=== PATIENT | female | born 1930 | race Caucasian/White ===

== ENCOUNTER 2017-03-31 16:51 | Emergency (ER) | payer MEDICARE ==
[~2017-03-31] VITALS: Ht 162.6 cm; Wt 59.0 kg
[2017-03-31 16:54] VITALS: BP 186/84; PULSE 72; RESP 20; TEMP 97.7; O2SAT 99
[2017-03-31] MEDS ORDERED: MULT-65 PO (17:07)
--- NOTE | 2017-03-31 17:19 | PD ---
HPI Chief Complaint: Fall Time Seen by Provider: 17:10 Travel History International Travel<30 days: No Contact w/Intl Traveler<30days: No Traveled to known affect area: No History of Present Illness HPI This is an 86-year-old female who presents for evaluation after mechanical fall. 2:58 PM today the patient was walking in her house when she tripped on a exercise bike in the home and fell, hitting her right parietal scalp against a stereo. She sustained a 1 CM laceration. She has slight pain at the site of laceration with palpation. She denies loss of consciousness, generalized headache, blurred vision, nausea or vomiting, confusion or amnesia, neck or back pain, injury to the extremities or torso. Her only complaint is that she is frustrated that she had to come here. She is not on any sort of anticoagulation. Her last tetanus vaccination was 2 years ago. She has no other complaints. [facility] Social History Alcohol Use: No Tobacco Use: No Allergies-Medications (Allergen,Severity, Reaction): Coded Allergies: Penicillin (Verified Allergy, Severe, rash as a teen, 03/31/17) Reported Meds & Prescriptions Reported Meds & Active Scripts Active Reported Multi-Vitamin Daily (Multiple Vitamin) 1 Tab Tab 1 Tab PO DAILY Review of Systems Except as stated in HPI: all other systems reviewed are Neg Physical Exam Narrative GENERAL: Pleasant well-developed well-nourished female in no acute distress answering questions appropriately GCS 15 SKIN: Warm and dry. There is a 1 cm linear laceration to the right parietal scalp. There is gauze noted to the right forearm from a previous fall. HEAD: Skin as noted above with no underlying step-offs Normocephalic. EYES: Pupils equal and round. No scleral icterus. No injection or drainage. ENT: No nasal bleeding or discharge. Mucous membranes pink and moist. NECK: Trachea midline. No JVD. CARDIOVASCULAR: Regular rate and rhythm. No murmur appreciated. RESPIRATORY: No accessory muscle use. Clear to auscultation. Breath sounds equal bilaterally. GASTROINTESTINAL: Abdomen soft, non-tender, nondistended. Hepatic and splenic margins not palpable. MUSCULOSKELETAL: No obvious deformities. Full spontaneous range of motion of the upper and lower extremities. No tenderness to palpation along the neck or back. No range of motion limitation. NEUROLOGICAL: Awake and alert. No obvious cranial nerve deficits. Motor grossly within normal limits. Normal speech. PSYCHIATRIC: Appropriate mood and affect; insight and judgment normal. Data Data Last Documented VS Vital Signs Date Time Temp Pulse Resp B/P Pulse Ox O2 Delivery O2 Flow Rate FiO2 03/31/17 17:08 67 17 100 Room Air 03/31/17 16:54 97.7 186/84 Orders Lidocai-Epi 1%-1:100,000 Inj (Xylocaine- (03/31/17 17:30) Ct Brain W/O Iv Contrast(Rout) (03/31/17 ) MDM Medical Decision Making Medical Screen Exam Complete: Yes Emergency Medical Condition: Yes Medical Record Reviewed: Yes Interpretation(s) CONCLUSION: 1. Mild cerebral atrophy. 2. Mild periventricular and subcortical white matter small vessel ischemic changes bilaterally. 3. Scattered old tiny lacunar infarcts within the bilateral basal ganglia. 4. 8 mm calcified extra-axial mass along the lateral aspect of the left temporal lobe suggestive of probable calcified meningioma. 5. No acute infarct, acute hemorrhage, midline shift or extra-axial fluid collections. Differential Diagnosis Scalp laceration, cranial hemorrhage, skull fracture, abrasion Narrative Course This is an 86-year-old female presents after mechanical fall with a 1 right parietal scalp. She has no other complaints at this time and appears quite well. She is not on any sort of anticoagulation. Plan is for CT of the brain. The laceration will be repaired [place], she verbally consents. CT brain reveals no acute abnormalities. The patient is stable for discharge. Procedures Procedure Narrative LACERATION LOCATION: Right parietal scalp LENGTH: 1 cm NUMBER OF STITCHES/JES: 3 REPAIR: The area of the laceration was prepped with Betadine and sterilely draped. The laceration was infiltrated with 1% lidocaine with epinephrine. The wound was copiously irrigated and explored without evidence of foreign body , tendon injury or neurovascular injury. The wound was closed using jes. This was a single layer repair. A sterile dressing was applied. The patient was advised to keep the dressing clean and dry. Patient tolerated the procedure well. Diagnosis Primary Impression: Scalp laceration Qualified Code: S01.01XA - Scalp laceration, initial encounter Additional Instructions: Wash gently with soap and water and apply antibiotic cream daily. Return here or to primary care physician's office in 7-10 days for staple removal. Med/Other Pt SpecificInfo: Wound Care Disposition: 01 DISCHARGE HOME Condition: Stable Abhijeet Guerra Mar 31, 2017 17:19
[2017-03-31] MEDS ORDERED: LIDOCAINE 1%/EPINEPHrine 1:100,000 SOLN 20 ML VIAL INFIL ONE (17:30)
--- NOTE | 2017-03-31 19:05 | RADRPT ---
EXAM DATE/TIME: 03/31/2017 17:51 [facility] COMPARISON: No previous studies available for comparison. INDICATIONS : Cephalgia; tfauma. RADIATION DOSE: 39.33 CTDIvol (mGy) MEDICAL HISTORY : Carcinoma, breast. SURGICAL HISTORY : None. ENCOUNTER: Initial ACUITY: 1 day PAIN SCALE: 5/10 LOCATION: Cranial TECHNIQUE: Multiple contiguous axial images were obtained of the head. Using automated exposure control and adj ustment of the mA and/or kV according to patient size, radiation dose was kept as low as reasonably a chievable to obtain optimal diagnostic quality images. DICOM format image data is available electro nically for review and comparison. FINDINGS: Mild cerebral atrophy is noted. Mild periventricular and subcortical white matter small vessel ischemic changes are noted bilaterally. There are scattered old tiny lacunar infarcts within the bilateral basal ganglia. There is a calcified extra-axial mass along the lateral aspect of the left temporal lobe measuring 8mm consistent with probable calcified meningioma. There is no acute infarct, acute hemorrhage, mid line shift or extra-axial fluid collections. CONCLUSION: 1. Mild cerebral atrophy. 2. Mild periventricular and subcortical white matter small vessel ischemic changes bilaterally. 3. Scattered old tiny lacunar infarcts within the bilateral basal ganglia. 4. 8 mm calcified extra-axial mass along the lateral aspect of the left temporal lobe suggestive of p robable calcified meningioma. 5. No acute infarct, acute hemorrhage, midline shift or extra-axial fluid collections. Ismael Castañeda MD on March 31, 2017 at 18:15 Board Certified Radiologist. This report was verified electronically.
== END 2017-03-31 19:33 | disposition home or self-care (01) ==
LOC: NEPC 16:51
DX: S01.01XA Laceration without foreign body of scalp, initial encounter (principal); W18.01XA Striking against sports equipment with subsequent fall, initial encounter; Y93.01 Activity, walking, marching and hiking; Y92.009 Unspecified place in unspecified non-institutional (private) residence as the place of occurrence of the external cause
CPT/HCPCS: 12001; 70450

== ENCOUNTER 2017-07-03 16:13 | Inpatient (IN) | payer MEDICARE, BC ==
[~2017-07-03] VITALS: Ht 165.1 cm; Wt 59.3 kg
[~2017-07-03 16:13] MED LIST: MULT-65 PO
[2017-07-03 16:14] VITALS: BP 146/88; PULSE 94; RESP 18; TEMP 98.4; O2SAT 95
[2017-07-03] MEDS ORDERED: TIMO0.5S30 EACH EYE (16:51)
[2017-07-03] MEDS ORDERED: FISHCAP4 PO (16:51)
[2017-07-03] MEDS ORDERED: CALC500T35 (16:51)
--- NOTE | 2017-07-03 17:07 | PD ---
HPI Chief Complaint: General Weakness Time Seen by Provider: 16:45 Travel History International Travel<30 days: No Contact w/Intl Traveler<30days: No Traveled to known affect area: No History of Present Illness HPI 87-year-old female came to the emergency room with history of right leg weakness that started this morning when she woke up at 7 AM. Patient says that she has been able to walk but it's wobbly. She has been trying to exercise but once again because of the weakness has not been fully efficient in that process. 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 Patient has not fallen or hit her head. No previous history of stroke. No history of headache or chest pain. Vital signs were otherwise stable. [facility], [facility] Past Medical History Narrative Medical List of her past medical, surgical, social and family history is reviewed from the nursing note. Cancer: Yes (BREAST ) Diminished Hearing: No Influenza Vaccination: Yes Past Surgical History Hysterectomy: Yes Other Surgery: Yes (BREAST CA LUMPECTOMY) Social History Alcohol Use: No Tobacco Use: No Substance Use: No Allergies-Medications (Allergen,Severity, Reaction): Coded Allergies: penicillin G (Unverified Allergy, Severe, rash as a teen, 07/03/17) Comments List of her allergies reviewed from the nursing note. Reported Meds & Prescriptions Reported Meds & Active Scripts Active Reported Timolol Opth Drops 0.5 % Soln 1 Drop EACH EYE BID Fish Oil + D3 (Fish Oil-Cholecalciferol) 1,200-1,000 Mg-Unit Cap 1 Cap PO DAILY Calcium (Oyster Shell) 500 Mg Calcium (1250 Mg) Tab Multi-Vitamin Daily (Multiple Vitamin) 1 Tab Tab 1 Tab PO DAILY Narrative Medication List of her home medications reviewed from the nursing note. Review of Systems Except as stated in HPI: all other systems reviewed are Neg Neurologic: Positive: Weakness, Focal Abnormalities Physical Exam Narrative GENERAL: Awake, alert, no obvious distress SKIN: Focused skin assessment warm/dry. HEAD: Atraumatic. Normocephalic. EYES: Pupils equal and round. No scleral icterus. No injection or drainage. ENT: No nasal bleeding or discharge. Dry mucous membrane NECK: Trachea midline. No JVD. CARDIOVASCULAR: Regular rate and rhythm. No murmur appreciated. RESPIRATORY: No accessory muscle use. Clear to auscultation. Breath sounds equal bilaterally. GASTROINTESTINAL: Abdomen soft, non-tender, nondistended. Hepatic and splenic margins not palpable. MUSCULOSKELETAL: No obvious deformities. No clubbing. No cyanosis. No edema. NEUROLOGICAL: Awake and alert. No obvious cranial nerve deficits. NIH stroke score of 34 right lower extremity drift, mild facial droop, left lower and upper extremity ataxia PSYCHIATRIC: Appropriate mood and affect; insight and judgment normal. Data Data Last Documented VS Vital Signs Date Time Temp Pulse Resp B/P (MAP) Pulse Ox O2 Delivery O2 Flow Rate FiO2 07/03/17 17:59 97 Room Air 07/03/17 16:14 98.4 94 18 Orders Orders Electrocardiogram (07/03/17 17:14) Prothrombin Time / Inr (Pt) (07/03/17 17:14) Complete Blood Count With Diff (07/03/17 17:14) Basic Metabolic Panel (Bmp) (07/03/17 17:14) Troponin I (07/03/17 17:14) Urinalysis - C+S If Indicated (07/03/17 17:14) Ct Brain W/O Iv Contrast(Rout) (07/03/17 17:14) Chest, Single Ap (07/03/17 17:14) Ecg Monitoring (07/03/17 17:14) Iv Access Insert/Monitor (07/03/17 17:14) Oximetry (07/03/17 17:14) Sodium Chloride 0.9% Flush (Ns Flush) (07/03/17 17:15) Vital Signs (Adult) ADRIANA.Q4H (07/03/17 17:57) Neuro Checks . ORDERED (07/03/17 17:57) Sodium Chlor 0.9% 1000 Ml Inj (Ns 1000 M (07/03/17 18:00) Aspirin (Aspirin) (07/03/17 18:00) Admit Order (Ed Use Only) (07/03/17 18:15) Labs Laboratory Tests Test 07/03/17 17:55 White Blood Count 9.3 TH/MM3 Red Blood Count 4.49 MIL/MM3 Hemoglobin 15.5 GM/DL Hematocrit 44.0 % Mean Corpuscular Volume 97.9 FL Mean Corpuscular Hemoglobin 34.5 PG Mean Corpuscular Hemoglobin Concent 35.3 % Red Cell Distribution Width 12.7 % Platelet Count 282 TH/MM3 Mean Platelet Volume 7.0 FL Neutrophils (%) (Auto) 78.1 % Lymphocytes (%) (Auto) 12.2 % Monocytes (%) (Auto) 9.1 % Eosinophils (%) (Auto) 0.3 % Basophils (%) (Auto) 0.3 % Neutrophils # (Auto) 7.2 TH/MM3 Lymphocytes # (Auto) 1.1 TH/MM3 Monocytes # (Auto) 0.8 TH/MM3 Eosinophils # (Auto) 0.0 TH/MM3 Basophils # (Auto) 0.0 TH/MM3 CBC Comment DIFF FINAL Differential Comment Prothrombin Time 10.7 SEC Prothromb Time International Ratio 1.0 RATIO Blood Urea Nitrogen 16 MG/DL Creatinine 0.58 MG/DL Random Glucose 115 MG/DL Calcium Level 8.9 MG/DL Sodium Level 139 MEQ/L Potassium Level 3.3 MEQ/L Chloride Level 103 MEQ/L Carbon Dioxide Level 26.4 MEQ/L Anion Gap 10 MEQ/L Estimat Glomerular Filtration Rate 99 ML/MIN Troponin I LESS THAN 0.02 NG/ML MDM Medical Decision Making Medical Screen Exam Complete: Yes Emergency Medical Condition: Yes Medical Record Reviewed: Yes Interpretation(s) Twelve-lead EKG was reviewed by me. Differential Diagnosis CVA, intracranial bleed Narrative Course 6:22 PM CAT scan of her head was negative for any bleed. Her CBC is within normal limits. Chemistry is pending. I have admitted this patient to the hospitalist for the stroke. Patient has been explained about her condition and she understands. Procedures EKG Prior to Arrival: No Diagnosis Primary Impression: CVA (cerebral vascular accident) Qualified Codes: I63.9 - Cerebral infarction, unspecified Admitting Information Admitting Physician Requests: Admit Scripts Aspirin (Aspirin) 325 Mg Tab 325 MG PO DAILY for CVA, #30 TAB Prov: Harlan Bhat 07/05/17 Pravastatin (Pravachol) 40 Mg Tab 40 MG PO HS for Cholesterol Management, #30 TAB Prov: Harlan Bhat 07/05/17 Dacia Boyd MD Jul 03, 2017 17:07
[2017-07-03] MEDS ORDERED: SODIUM CHLORIDE 0.9% FLUSH 10 ML FLUSH IVF PRN (17:15)
--- NOTE | 2017-07-03 17:48 | RADRPT ---
EXAM DATE/TIME: 07/03/2017 17:34 [facility] COMPARISON: CT BRAIN W/O CONTRAST, March 31, 2017, 17:51. INDICATIONS : Right leg weakness. RADIATION DOSE: 56.35 CTDIvol (mGy) MEDICAL HISTORY : Carcinoma, breast. SURGICAL HISTORY : Hysterectomy. ENCOUNTER: Initial ACUITY: 1 day PAIN SCALE: 4/10 LOCATION: Right lower leg. TECHNIQUE: Multiple contiguous axial images were obtained of the head. Using automated exposure control and adj ustment of the mA and/or kV according to patient size, radiation dose was kept as low as reasonably a chievable to obtain optimal diagnostic quality images. DICOM format image data is available electro nically for review and comparison. FINDINGS: CEREBRUM: The ventricles are normal for age. No evidence of midline shift, mass lesion, hemorrhage or acute in farction. Moderate periventricular white matter changes. No extra-axial fluid collections are seen. POSTERIOR FOSSA: The cerebellum and brainstem are intact. The 4th ventricle is midline. The cerebellopontine angle i s unremarkable. EXTRACRANIAL: The visualized portion of the orbits is intact. SKULL: The calvaria is intact. No evidence of skull fracture. CONCLUSION: Negative for acute traumatic injury. Mp Murdock MD FACR on July 03, 2017 at 17:46 Board Certified Radiologist. This report was verified electronically.
[2017-07-03 17:59] VITALS: O2SAT 97
[2017-07-03] MEDS ORDERED: ASPIRIN 325 MG TAB PO ONE (18:00)
--- NOTE | 2017-07-03 18:00 | RADRPT ---
EXAM DATE/TIME: 07/03/2017 17:19 [facility] COMPARISON: No previous studies available for comparison. INDICATIONS : Short of breath. Possible CVA. MEDICAL HISTORY : Carcinoma, breast. SURGICAL HISTORY : None. ENCOUNTER: Initial ACUITY: 1 day PAIN SCORE: 0/10 LOCATION: Bilateral chest FINDINGS: A single view of the chest demonstrates the lungs to be symmetrically aerated without evidence of mas s, infiltrate or effusion. Scoliosis. The cardiomediastinal contours are unremarkable. Moderate de generative changes left shoulder. CONCLUSION: Negative for an acute process. Mp Murdock MD FACR on July 03, 2017 at 17:58 Board Certified Radiologist. This report was verified electronically.
[2017-07-03 18:11] LABS: AUTOMATED NEUTROPHIL # 7.2 TH/MM3 (1.8-7.7); BASOPHIL % 0.3 % (0.0-2.0); EOSINOPHIL % 0.3 % (0.0-4.0); HEMOGLOBIN 15.5 GM/DL (11.6-15.3); LYMPH % 12.2 % (9.0-44.0); LYMPHOCYTE # 1.1 TH/MM3 (1.0-4.8); MEAN CELL VOLUME 97.9 FL (80.0-100.0); MEAN CORPUSCULAR HEMOGLOBIN 34.5 PG (27.0-34.0); MEAN CORPUSCULAR HGB CONC 35.3 % (32.0-36.0); MONO % 9.1 % (0.0-8.0); MONOCYTE # 0.8 TH/MM3 (0-0.9); NEUT % 78.1 % (16.0-70.0); PLATELET COUNT 282 TH/MM3 (150-450); RED BLOOD COUNT 4.49 MIL/MM3 (4.00-5.30); RED CELL DISTRIBUTION WIDTH 12.7 % (11.6-17.2); WHITE BLOOD COUNT 9.3 TH/MM3 (4.0-11.0)
[2017-07-03 18:22] LABS: PROTHROMBIN TIME - PATIENT 10.7 SEC (9.8-11.6)
[2017-07-03 18:35] LABS: BICARBONATE 26.4 MEQ/L (21.0-32.0); BLOOD UREA NITROGEN 16 MG/DL (7-18); CALCIUM 8.9 MG/DL (8.5-10.1); CHLORIDE 103 MEQ/L (98-107); CREATININE 0.58 MG/DL (0.50-1.00); GLOMERULAR FILTRATION RATE 99 ML/MIN (>89); GLUCOSE,RANDOM 115 MG/DL (74-106); SODIUM (NA) 139 MEQ/L (136-145)
[2017-07-03 18:38] LABS: TROPONIN I LESS THAN 0.02 NG/ML (0.02-0.05)
[2017-07-03] MEDS: SODIUM CHLOR 0.9% 1000 ML INJ 1,000 ML IV SCH (20:39)
[2017-07-03 21:22] VITALS: BP 167/83; PULSE 74; RESP 18; TEMP 98.5; O2SAT 96
[2017-07-03 22:21] LABS: AMORPHOUS SEDIMENT, URINE OCC; BILIRUBIN, URINE NEG (NEG); BLOOD, URINE NEG (NEG); GLUCOSE,URINE NEG (NEG); KETONE, URINE NEG (NEG); MUCUS URINE FEW /lpf (OCC); NITRITE,URINE NEG (NEG); URINE COLOR LIGHT-YELLOW (YELLW/STRAW); URINE LEUKOCYTE ESTERASE TRACE (NEG)
[2017-07-03 23:00] VITALS: PULSE 83
[2017-07-04] VITALS (8 sets, daily range): BP systolic 99–155; BP diastolic 57–86; PULSE 70–85; RESP 16–18; TEMP 98–99; O2SAT 95–99
[2017-07-04] MEDS: SODIUM CHLOR 0.9% 1000 ML INJ 1,000 ML IV SCH (07:20)
[2017-07-04] MEDS ORDERED: POTASSIUM CHLOR 20 MEQ PREMIX 100 ML IV ONE (08:30)
--- NOTE | 2017-07-04 10:21 | HHI.HP ---
[facility]ician Nilda Stockton MD Admission Diagnosis CVA Diagnoses: Chief Complaint: "I fell and when I got up my left leg was not working right" Travel History International Travel<30 Days: No Contact w/Intl Traveler <30 Da: No Traveled to Known Affected Are: No History of Present Illness is an 87 year old female, only PMH she reports is of breast cancer over 10 years ago , and glaucoma. who presented to the the ED on 07/03 after falling at home while making her way to the bathroom, did not hit her head. She states that she got up and with the use of her walk ambulated the rest of the way to use bathroom. She noticed weakness in her left leg after getting up off the floor right after her fall. After speaking with her fried she decided to come to the hospital to be evaluated for possible stroke. Review of Systems Constitutional: DENIES: Chills, Dizziness, Night Sweats Endocrine: DENIES: Abnorml menstrual pattern Eyes: DENIES: Blurred vision, Eye pain Ears, nose, mouth, throat: DENIES: Tinnitus Respiratory: DENIES: Cough, Shortness of breath Cardiovascular: DENIES: Chest pain, Palpitations, Syncope, Dyspnea on Exertion Gastrointestinal: DENIES: Abdominal pain Musculoskeletal: DENIES: Muscle aches Neurologic: COMPLAINS OF: Abnormal gait (Left leg weakness) Psychiatric: DENIES: Confusion Past Family Social History Past Medical History Right side breast Cancer over 10 years ago Glaucoma Past Surgical History Lumpectomy of right breast Hysterectomy Reported Medications Timolol Opth Drops 0.5 % Soln 1 Drop EACH EYE BID Fish Oil + D3 (Fish Oil-Cholecalciferol) 1,200-1,000 Mg-Unit Cap 1 Cap PO DAILY Calcium (Oyster Shell) 500 Mg Calcium (1250 Mg) Tab Multi-Vitamin Daily (Multiple Vitamin) 1 Tab Tab 1 Tab PO DAILY Allergies: Coded Allergies: penicillin G (Unverified Allergy, Severe, rash as a teen, 07/03/17) Active Ordered Medications Current Medications Medications (Trade) Dose Ordered Sig/Nirali Route Start Time Stop Time Status Last Admin (NS Flush) 2 ml UNSCH PRN IVF 07/03/17 17:15 07/03/17 20:39 Sodium Chloride 1,000 ml @ 75 mls/hr [id number] IV 07/03/17 18:00 07/03/17 20:39 Potassium Chloride 100 ml @ 50 mls/hr BOLUS ONCE IV 07/04/17 08:30 07/04/17 10:29 07/04/17 08:37 Family History Father: Histoplasmosis Social History lives with Denies tobacco use Denies alcohol use Denies illicit drug use Physical Exam Vital Signs Vital Signs Date Time Temp Pulse Resp B/P (MAP) Pulse Ox O2 Delivery O2 Flow Rate FiO2 07/04/17 08:31 98.0 76 17 128/71 (90) 96 07/04/17 05:44 98.6 81 18 99/57 (71) 96 07/04/17 01:02 98.0 70 16 130/62 (84) 97 07/03/17 21:22 98.5 74 18 167/83 (111) 96 07/03/17 18:58 07/03/17 17:59 97 Room Air 07/03/17 16:14 98.4 94 18 146/88 (107) 95 Room Air Physical Exam GENERAL: This is a well-nourished, well-developed patient, in no apparent distress. SKIN: No rashes, ecchymoses or lesions. Cool and dry. HEAD: Atraumatic. Normocephalic. No temporal or scalp tenderness. EYES: Pupils equal round and reactive. Extraocular motions intact. No scleral icterus. No injection or drainage. ENT: Nose without bleeding, purulent drainage or septal hematoma. Throat without erythema, tonsillar hypertrophy or exudate. Uvula midline. Airway patent. NECK: Trachea midline. No JVD or lymphadenopathy. Supple, nontender, no meningeal signs. CARDIOVASCULAR: Regular rate and rhythm without murmurs, gallops, or rubs. RESPIRATORY: Clear to auscultation. Breath sounds equal bilaterally. No wheezes , rales, or rhonchi. GASTROINTESTINAL: Abdomen soft, non-tender, nondistended. No hepato-splenomegaly , or palpable masses. No guarding. MUSCULOSKELETAL: Extremities without clubbing, cyanosis, or edema. No joint tenderness, effusion, or edema noted. No calf tenderness. Negative Homans sign bilaterally. NEUROLOGICAL: Awake and alert. Cranial nerves II through XII intact. Motor and sensory grossly within normal limits. Five out of 5 muscle strength in all muscle groups. Normal speech. Laboratory Laboratory Tests Test 07/03/17 17:55 07/03/17 21:35 White Blood Count 9.3 Red Blood Count 4.49 Hemoglobin 15.5 Hematocrit 44.0 Mean Corpuscular Volume 97.9 Mean Corpuscular Hemoglobin 34.5 Mean Corpuscular Hemoglobin Concent 35.3 Red Cell Distribution Width 12.7 Platelet Count 282 Mean Platelet Volume 7.0 Neutrophils (%) (Auto) 78.1 Lymphocytes (%) (Auto) 12.2 Monocytes (%) (Auto) 9.1 Eosinophils (%) (Auto) 0.3 Basophils (%) (Auto) 0.3 Neutrophils # (Auto) 7.2 Lymphocytes # (Auto) 1.1 Monocytes # (Auto) 0.8 Eosinophils # (Auto) 0.0 Basophils # (Auto) 0.0 CBC Comment DIFF FINAL Differential Comment Prothrombin Time 10.7 Prothromb Time International Ratio 1.0 Blood Urea Nitrogen 16 Creatinine 0.58 Random Glucose 115 Calcium Level 8.9 Sodium Level 139 Potassium Level 3.3 Chloride Level 103 Carbon Dioxide Level 26.4 Anion Gap 10 Estimat Glomerular Filtration Rate 99 Troponin I LESS THAN 0.02 Urine Color LIGHT-YELLOW Urine Turbidity CLOUDY Urine pH 8.0 Urine Specific [place] 1.012 Urine Protein TRACE Urine Glucose (UA) NEG Urine Ketones NEG Urine Occult Blood NEG Urine Nitrite NEG Urine Bilirubin NEG Urine Urobilinogen LESS THAN 2.0 Urine Leukocyte Esterase TRACE Urine RBC 2 Urine WBC 1 Urine Amorphous Sediment OCC Urine Mucus FEW Microscopic Urinalysis Comment CATH-CULT NOT IND Result Diagram: 07/03/17175407/03/171754 Imaging Last [address] 07/03/171713 Signed Impressions: Service Date/Time: Monday, July 03, 2017 17:34 - CONCLUSION: Negative for acute traumatic injury. Mp Murdock MD FACR Chest X-Ray 07/03/171713 Signed Impressions: Service Date/Time: Monday, July 03, 2017 17:19 - CONCLUSION: Negative for an acute process. Mp Murdock MD FACR Course 87 year old female with complaints of left leg weakness after fall, CT in ED done was negative for bleed. This morning no neurological symptoms, left leg weakness resolved. will workup for possible TIA, consult neurology, order speech evaluation, PT/OT evaluation as well. Caprini VTE Risk Assessment Caprini VTE Risk Assessment: Mod/High Risk (score >= 2) Caprini Risk Assessment Model Point Value = 1 Point Value = 2 Point Value = 3 Point Value = 5 Age 41-60 Minor surgery BMI > 25 kg/m2 Swollen legs Varicose veins or History of unexplained or recurrent spontaneous Oral contraceptives or hormone replacement Sepsis (< 1 month) Serious lung disease, including pneumonia (< 1 month) Abnormal pulmonary function Acute myocardial infarction Congestive heart failure (< 1 month) History of inflammatory bowel disease Medical patient at bed rest Age 61-74 Arthroscopic surgery Major open surgery (> 45 min) Laparoscopic surgery (> 45 min) Malignancy Confined to bed (> 72 hours) Immobilizing plaster cast Central venous access Age >= 75 History of VTE Family history of VTE Factor V Leiden Prothrombin [id number] Lupus anticoagulant Anticardiolipin antibodies Elevated serum homocysteine Heparin-induced thrombocytopenia Other congenital or acquired thrombophilia Stroke (< 1 month) Elective arthroplasty Hip, pelvis, or leg fracture Acute spinal cord injury (< 1 month) Prophylaxis Regimen Total Risk Factor Score Risk Level Prophylaxis Regimen 0-1 Low Early ambulation 2 Moderate Order ONE of the following: *Sequential Compression Device (SCD) *Heparin 5000 units SQ BID 3-4 Higher Order ONE of the following medications: *Heparin 5000 units SQ TID *Enoxaparin/Lovenox 40 mg SQ daily (WT < 150 kg, CrCl > 30 mL/min) *Enoxaparin/Lovenox 30 mg SQ daily (WT < 150 kg, CrCl > 10-29 mL/min) *Enoxaparin/Lovenox 30 mg SQ BID (WT < 150 kg, CrCl > 30 mL/min) AND/OR *Sequential Compression Device (SCD) 5 or more Highest Order ONE of the following medications: *Heparin 5000 units SQ TID (Preferred with Epidurals) *Enoxaparin/Lovenox 40 mg SQ daily (WT < 150 kg, CrCl > 30 mL/min) *Enoxaparin/Lovenox 30 mg SQ daily (WT < 150 kg, CrCl > 10-29 mL/min) *Enoxaparin/Lovenox 30 mg SQ BID (WT < 150 kg, CrCl > 30 mL/min) AND *Sequential Compression Device (SCD) Assessment and Plan Problem List: (1) CVA (cerebral vascular accident) ICD Code: I63.9 - Cerebral infarction, unspecified Status: Acute Assessment and Plan is an 87 year old female who presented to the the ED on 07/03 after falling at home while making her way to the bathroom, did not hit her head. [place] weakness on left leg and came to hospital for evaluation for possible stroke. Her symptoms have now resolved, no new symptoms reported. Left leg weakness possible CVA, acute - weakness noted on left leg after fall at home - CT in ED negative for bleed. - Will order MRI to evaluate further for brain ischemia. Discussed with patient that this could be possible TIA. - Neurology consulted for evaluation and recommendations. - NIH stroke scale 0 - Weakness resolved, orders for PT/OT evaluation as well as speech evaluation. Hypokalemia, acute - Currently receiving KCL 20meq IV - Will order BMP for tomorrow to recheck Glaucoma, chronic - Patient to continue at home Timolol VET prophylaxis - SCD's in place Attestation Patient seen and examined with CIPRIANO Rubio. The exam, history, and the medical decision-making described in the above note were completed with the assistance of the dictating practitioner. I attest that I had a [id number] encounter with the patient on the same day, and personally performed all of the history, exam, or medical decision making. Discussed case with him thoroughly after seeing the patient, reviewed and agreed with the plan. Please see addendum in History, Physical examination and Plan. See below for any errata/ additional input: This is an 87 year old female, only PMH she reports is of breast cancer over 1\\5 years ago , and glaucoma. who presented to the the ED on 07/03 after falling at home when right leg gave way on her way to the bathroom, did not hit her head. She then called her friend and decided to go to the hospital. She denies any slurring of speech, headache, nausea, vomiting, facial weakness, weakness anywhere else, or any sensory deficits. Not in distress Pupils equal reactive to light and accommodation, pink conjunctiva Regular rate and rhythm Clear breath sounds No edema NEUROLOGICAL: Alert, awake and oriented x3. Remote, recent, immediate memory intact. Concentration, judgment and higher function WNL. No cranial deficits: Pupils equal round reactive to light and accommodation, no facial asymmetry, shoulder shrug strong and symmetric, gross hearing intact, tongue midline. Moves all 4 extremities, there is no obvious muscle strength weakness all 4 extremities. No sensory deficits. Babinski downgoing, clonus deferred. Negative meningeal signs. Gait testing deferred MRI positive for a small nonhemorrhagic infarct left basal ganglia. Carotid ultrasound unremarkable, no significant stenosis. CT scan of the head unremarkable. Blood pressure regulated, permissive hypertension for now. Consult neurology as above, start aspirin and statin, check lipid profile as above. Status post physical therapy evaluation, likely discharge tomorrow if okay with neurology. Start telemetry. Check echocardiogram. Physician Certification 2 Midnight Certification Type: Admission for Inpatient Services Order for Inpatient Services The services are ordered in accordance with Medicare regulations or non- Medicare payer requirements, as applicable. In the case of services not specified as inpatient-only, they are appropriately provided as inpatient services in accordance with the 2-midnight benchmark. Estimated LOS (days): 2 days is the estimated time the patient will need to remain in the hospital, assuming treatment plan goals are met and no additional complications. Post-Hospital Plan: Home Problem Qualifiers (1) CVA (cerebral vascular accident): Qualified Codes: I63.9 - Cerebral infarction, unspecified Harlan Bhat Jul 04, 2017 10:21 Chloé Dixon MD Jul 04, 2017 17:44
[2017-07-04] MEDS: TIMOLOL MALEATE 0.5% OPHT SOLN 5 ML BTL EACH EYE SCH ×2 (11:00→21:00)
--- NOTE | 2017-07-04 13:21 | EKG ---
Date Performed: 07/03/2017 Time Performed: 18:45:48 PTAGE: 87 years EKG: Sinus rhythm POSSIBLE LEFT ATRIAL ENLARGEMENT BORDERLINE ECG NO PREVIOUS TRACING DOCTOR: Conrado Cline Interpretating Date/Time 07/04/2017 13:16:10
[2017-07-04] MEDS ORDERED: GADODIAMIDE PF 287 MG/ML 5 ML VIAL (for RAD MRI) IVCONTRAST ONE (14:00)
--- NOTE | 2017-07-04 14:37 | RADRPT ---
EXAM DATE/TIME: 07/04/2017 13:46 [facility] COMPARISON: CT BRAIN W/O CONTRAST, July 03, 2017, 17:34. INDICATIONS : Right lower extremity weakness that has resolved. CONTRAST: 12 cc Omniscan (gadodiamide) IV MEDICAL HISTORY : Carcinoma, breast. SURGICAL HISTORY : Hysterectomy. Total knee replacement, left. Total knee replacement, right. ENCOUNTER: Subsequent ACUITY: 2 day PAIN SCORE: 0/10 LOCATION: cranial TECHNIQUE: Multiplanar, multisequence MRI of the brain was performed both prior to and following the administrat ion of paramagnetic contrast. FINDINGS: CEREBRUM: The ventricles are normal for age. There is bilateral cortical atrophy. No evidence of midline shift or hemorrhage. No extraaxial fluid collections are seen. The pituitary gland and suprasellar ciste rn are normal in configuration. There is an 6mm acute to subacute infarct in the left basal ganglia. There is a homogeneous well-defined 8mm enhancing dural based mass along the base of the right fronta l lobe suggestive of a small meningioma. WHITE MATTER: There is moderate chronic white matter changes bilaterally consisting with ischemic demyelinization. POSTERIOR FOSSA: The cerebellum and brainstem are intact. The 4th ventricle is midline. The cerebellopontine angle is unremarkable. The cerebellar tonsils are normal in position. DIFFUSION IMAGING: There is an 6mm area of restricted diffusion in the left basal ganglia characteristic for a focal sma ll acute to subacute infarct. EXTRACRANIAL: The visualized portions of the orbits and paranasal sinuses are unremarkable. POST-CONTRAST: There is a dural based mass measuring 8 mm with homogeneous enhancement on the postcontrast images al esther the base of the right frontal lobe characteristic of a small meningioma. Otherwise, no enhancing mass occupying lesions are seen within the brain substance. CONCLUSION: 1. 6mm focal acute to subacute nonhemorrhagic infarct in the left basal ganglia 2. 8mm dural based homogeneous enhancing mass lesion along the base of the right frontal lobe charact eristic of a small meningioma. 3. Bilateral cortical atrophy and moderate chronic white matter changes. 4. No definite brain metastatic disease is demonstrated. Shaheed Stephens MD on July 04, 2017 at 14:28 Board Certified Radiologist. This report was verified electronically.
--- NOTE | 2017-07-04 16:13 | RADRPT ---
EXAM DATE/TIME: 07/04/2017 15:16 [facility] COMPARISON: No previous studies available for comparison. INDICATIONS : Transient ischemic attack. MEDICAL HISTORY : Carcinoma, breast. Transient ischemic attack. Glaucoma. SURGICAL HISTORY : Hysterectomy. Right breast lumpectomy. ENCOUNTER: Initial ACUITY: 1 day PAIN SCORE: 0/10 LOCATION: Bilateral neck PEAK SYSTOLIC VELOCITIES (cm/sec): ICA/CCA RATIO: Right: 0.7 Left: 0.5 ICA: Right: 64 Left: 54 CCA: Right: 90 Left: 99 ECA: Right: 106 Left: 72 VERTEBRAL: Right: 46 antegrade Left: 36 antegrade Elevated flow velocities and ICA/CCA ratios have been found to correlate with increased degrees of vessel stenosis, calculated as percentage of diameter relative to a normal segment of distal ICA/CCA FINDINGS: RIGHT CAROTID: Mild atherosclerotic changes at the bifurcation. No significant stenosis is visualized. The waveform s are within normal limits. LEFT CAROTID: Mild atherosclerotic changes of the bifurcation. No significant stenosis is visualized. The waveform s are within normal limits. VERTEBRAL ARTERIES: Antegrade flow is seen in both vertebral arteries. MISCELLANEOUS: None. CONCLUSION: Mild atherosclerotic changes bilaterally. No focal high grade or hemodynamically significant stenosis . Shaheed Stephens MD on July 04, 2017 at 16:10 Board Certified Radiologist. This report was verified electronically.
[2017-07-04] MEDS ORDERED: SODIUM CHLORIDE 0.9% FLUSH 5 ML FLUSH IV FLUSH PRN (16:30)
[2017-07-04] MEDS ORDERED: GLUCAGON 1 MG/ML VIAL OTHER PRN (16:30)
[2017-07-04] MEDS ORDERED: DEXTROSE 50% IN WATER 50 ML VIAL(D50) IV PUSH PRN (16:30)
[2017-07-04] MEDS: ASPIRIN 325 MG TAB PO SCH (16:52)
[2017-07-04] MEDS: INSULIN ASPART SUPPLEMENTAL SCALE SQ SCH ×2 (16:52→21:00)
--- NOTE | 2017-07-04 17:58 | MB ---
cc: EH JACOBS. PHD DATE OF CONSULTATION 07/04/17 REASON FOR CONSULTATION Possible TIA. HISTORY OF PRESENT ILLNESS Ms. Yeung is an 87-year-old woman who was in her usual state of health until yesterday. She states she was walking and her left leg suddenly became weak and she fell. The arm was not weak. Her strength is back to normal at the present time. She had no slurred speech or dizziness. PAST MEDICAL HISTORY 1. History of glaucoma, 2. history of breast cancer 10 years ago 3. Lumpectomy right breast 4. Hysterectomy. MEDICATIONS At home, 1. Timolol 2. Fish well 3. Calcium. 4. Multivitamin. ALLERGIES PENICILLIN NEUROLOGIC EXAMINATION VITAL SIGNS: Blood pressure is 167/83, pulse 74, respirations 18, temperature is 98.5 degrees. Higher cortical function is normal. Cranial nerves are intact in detail. Motor exam at this time reveals 5/5 strength of all major groups in both upper and lower extremities. There is no drift. Fine motor skill is normal. Reflexes are symmetric. Cerebral testing is normal. IMAGING STUDIES CT scan of the brain shows atrophy, no acute change. MRI of the brain shows a 6 mm focal area of subacute stroke left basal ganglia, 8 mm dural based enhancing mass in the right frontal lobe, probably meningioma. Carotid ultrasound - no high-grade stenosis is identified. LABORATORY DATA White count is 9300. Hemoglobin 15.5, hematocrit 44%, platelets 282,000. Sodium is 139, potassium 3.3, chloride 103, CO2 26.4, BUN is 16, creatinine 0.58, GFR is 99, glucose 113, PT 10.7, INR one. CARDIOLOGY STUDIES EKG - left atrial enlargement, sinus rhythm. IMPRESSION Left basal ganglia stroke. Of note, the patient today felt that her left leg was weak, however, she was not clear on that. She said it could have been her right leg. I suspect it might have been her right leg. This is probably the reason for her fall. RECOMMENDATIONS Aspirin 325 mg daily. We will obtain an echocardiogram as well. Monitor cardiac telemetry to rule out atrial fibrillation. We will also consult rehab medicine. ADDENDUM In addition check a lipid panel. Signs MD JYOTSNA Watkins/ /4:22 PM /5:55 PM
[2017-07-04 20:33] LABS: HEMATOCRIT 42.5 % (35.0-46.0); HEMOGLOBIN 14.4 GM/DL (11.6-15.3); MEAN CELL VOLUME 98.3 FL (80.0-100.0); MEAN CORPUSCULAR HEMOGLOBIN 33.3 PG (27.0-34.0); MEAN CORPUSCULAR HGB CONC 33.9 % (32.0-36.0); MEAN PLATELET VOLUME 7.1 FL (7.0-11.0); PLATELET COUNT 269 TH/MM3 (150-450); RED BLOOD COUNT 4.33 MIL/MM3 (4.00-5.30); RED CELL DISTRIBUTION WIDTH 12.5 % (11.6-17.2); WHITE BLOOD COUNT 7.5 TH/MM3 (4.0-11.0)
[2017-07-04 20:53] LABS: ALBUMIN 3.2 GM/DL (3.4-5.0); AST (GOT) 23 U/L (15-37); BICARBONATE 23.7 MEQ/L (21.0-32.0); BLOOD UREA NITROGEN 21 MG/DL (7-18); CALCIUM 8.4 MG/DL (8.5-10.1); CHLORIDE 104 MEQ/L (98-107); CREATININE 0.82 MG/DL (0.50-1.00); GLOMERULAR FILTRATION RATE 66 ML/MIN (>89); GLUCOSE,RANDOM 132 MG/DL (74-106); SODIUM (NA) 138 MEQ/L (136-145)
[2017-07-04 20:55] LABS: ALT (GPT) 23 U/L (10-53); CHOLESTEROL 231 MG/DL (120-200); TRIGLYCERIDES 110 MG/DL (42-150)
[2017-07-04 20:56] LABS: ALKALINE PHOSPHATASE 82 U/L (45-117); CHOLESTEROL/ HDL RATIO 3.02 RATIO; HDL CHOLESTEROL 76.4 MG/DL (40.0-60.0); LDL CHOLESTEROL 133 MG/DL (0-99); TOTAL BILIRUBIN ADULT 0.4 MG/DL (0.2-1.0); TOTAL PROTEIN 6.7 GM/DL (6.4-8.2)
[2017-07-04] MEDS: SODIUM CHLORIDE 0.9% FLUSH 5 ML FLUSH IV FLUSH SCH (21:00)
[2017-07-04] MEDS: PRAVASTATIN SOD 40 MG TAB PO SCH (21:00)
[2017-07-04 22:14] LABS: HEMOGLOBIN A1C 5.9 % (4.3-6.0)
[2017-07-05] VITALS (9 sets, daily range): BP systolic 112–168; BP diastolic 63–81; PULSE 64–81; RESP 16–18; TEMP 98.1–98.5; O2SAT 95–99
[2017-07-05] MEDS: INSULIN ASPART SUPPLEMENTAL SCALE SQ SCH ×4 (07:19→21:00)
[2017-07-05] MEDS: SODIUM CHLORIDE 0.9% FLUSH 5 ML FLUSH IV FLUSH SCH ×2 (07:19→20:51)
[2017-07-05 08:34] LABS: CHOLESTEROL/ HDL RATIO 3.04 RATIO; HDL CHOLESTEROL 84.4 MG/DL (40.0-60.0)
[2017-07-05] MEDS: ASPIRIN 325 MG TAB PO SCH (08:35)
[2017-07-05] MEDS: TIMOLOL MALEATE 0.5% OPHT SOLN 5 ML BTL EACH EYE SCH ×2 (08:35→20:52)
--- NOTE | 2017-07-05 08:52 | HHI.FF ---
Face to Face Verification Diagnosis: (1) CVA (cerebral vascular accident) Physical Therapy Order: Evaluate and Treat Home Health Nursing Order: Signs/symptoms of disease process Nursing assessment with vital signs I have seen patient Trudi Yeung on 07/05/17. My clinical findings support the need for the requested home health care services because: Ltd mobility - disease progression Deconditioned w/ increased weakness I certify that my clinical findings support that this patient is homebound because: Unsteady gait/balance Chloé Dixon MD Jul 05, 2017 08:52
[2017-07-05] MEDS ORDERED: POTASSIUM CHLORIDE 25 MEQ EFFERVESCENT TAB PO ONE (12:00)
[2017-07-05] MEDS ORDERED: ASPI325T PO (15:46)
[2017-07-05] MEDS ORDERED: PRAV40TA PO (15:46)
--- NOTE | 2017-07-05 16:15 | HHI.PR ---
Subjective Remarks f/u CVA No overnight events, no fever, no chills, no headache, blood pressure stable. Right lower extremity weakness is stable. Awaiting echocardiogram. Objective Vitals Vital Signs Date Time Temp Pulse Resp B/P (MAP) Pulse Ox O2 Delivery O2 Flow Rate FiO2 07/05/17 12:00 98.1 75 18 168/81 (110) 97 07/05/17 11:24 69 07/05/17 10:39 97 07/05/17 08:24 98.4 70 18 137/70 (92) 97 07/05/17 05:38 98.3 70 18 112/63 (79) 95 07/04/17 23:51 98.6 70 16 118/70 (86) 95 07/04/17 23:00 83 07/04/17 20:51 99.0 77 18 130/65 (86) 96 07/04/17 16:15 98.0 80 18 127/67 (87) 99 I/O 07/04/17 07/04/17 07/04/17 07/05/17 07/05/17 07/05/17 07:00 15:00 23:00 07:00 15:00 23:00 Intake Total 102 ml 100 ml 751 ml Balance 102 ml 100 ml 751 ml Intake Oral 240 ml IV Total 102 ml 100 ml 511 ml # Voids 1 1 3 # Bowel Movements 1 Result Diagram: 07/04/17193907/04/171939 Objective Remarks Not in distress, well-nourished, looks stated age Supple neck, no masses or thyromegaly, trachea midline Normal rate and regular rhythm, no murmurs gallops or rubs appreciated. Clear to auscultation and symmetric bilaterally, normal respiratory effort. Normal bowel sounds, soft, non-tender, nondistended, no guarding. Extremities without clubbing, cyanosis, or edema. No rash of generalized distribution. Skin is warm and dry. Extremities without clubbing, cyanosis, or edema. NEUROLOGICAL: Awake and alert. Cranial nerves II through XII intact. Motor and sensory grossly within normal limits. Five out of 5 muscle strength in all muscle groups. Normal speech. A/P Problem List: (1) CVA (cerebral vascular accident) ICD Code: I63.9 - Cerebral infarction, unspecified Status: Acute Assessment and Plan is an 87 year old female who presented to the the ED on 07/03 after falling at home while making her way to the bathroom, did not hit her head. [place] weakness on left leg and came to hospital for evaluation for possible stroke. Her symptoms have now resolved, no new symptoms reported. Left leg weakness possible CVA, acute - weakness noted on left leg after fall at home - CT in ED negative for bleed. MRI showed left basal ganglia infarct. Status post physical therapy evaluation, will need physical therapy at home. Carotid ultrasound no significant plaques. Blood pressure stable. Started on aspirin and pravastatin. Hemoglobin A1c is normal. Awaiting echocardiogram, if negative, per neuurology, okay for discharge to follow-up in 2 weeks. Hypokalemia, acute-resolved after replacement Glaucoma, chronic - Patient to continue at home Timolol VET prophylaxis - SCD's in place Discharge Planning Discharge today if echocardiogram is normal. Problem Qualifiers (1) CVA (cerebral vascular accident): Qualified Codes: I63.9 - Cerebral infarction, unspecified Chloé Dixon MD Jul 05, 2017 16:15
--- NOTE | 2017-07-05 16:20 | HHI.DS ---
Discharge Summary Admission Date Jul 03, 2017 at 18:16 Discharge Date: Jul 05, 2017 Admitting Diagnosis CVA (1) CVA (cerebral vascular accident) ICD Code: I63.9 - Cerebral infarction, unspecified Status: Acute Brief History - From Admission is an 87 year old female, only PMH she reports is of breast cancer over 10 years ago , and glaucoma. who presented to the the ED on 07/03 after falling at home while making her way to the bathroom, did not hit her head. She states that she got up and with the use of her walk ambulated the rest of the way to use bathroom. She noticed weakness in her left leg after getting up off the floor right after her fall. After speaking with her fried she decided to come to the hospital to be evaluated for possible stroke. CBC/BMP: 07/04/17193907/04/171939 Significant Findings Laboratory Tests Test 07/03/17 17:55 07/03/17 21:35 07/04/17 19:40 07/05/17 06:59 Hemoglobin 15.5 GM/DL (11.6-15.3) Mean Corpuscular Hemoglobin 34.5 PG (27.0-34.0) Neutrophils (%) (Auto) 78.1 % (16.0-70.0) Monocytes (%) (Auto) 9.1 % (0.0-8.0) Random Glucose 115 MG/DL (74-106) 132 MG/DL (74-106) Potassium Level 3.3 MEQ/L (3.5-5.1) 3.0 MEQ/L (3.5-5.1) Troponin I LESS THAN 0.02 NG/ML Urine Turbidity CLOUDY (CLEAR) Urine Leukocyte Esterase TRACE (NEG) Urine Mucus FEW /lpf (OCC) Blood Urea Nitrogen 21 MG/DL (7-18) Albumin 3.2 GM/DL (3.4-5.0) Calcium Level 8.4 MG/DL (8.5-10.1) Estimat Glomerular Filtration Rate 66 ML/MIN (>89) Cholesterol Level 231 MG/DL (120-200) 257 MG/DL (120-200) LDL Cholesterol 133 MG/DL (0-99) 154 MG/DL (0-99) HDL Cholesterol 76.4 MG/DL (40.0-60.0) 84.4 MG/DL (40.0-60.0) PE at Discharge Not in distress, well-nourished, looks stated age Supple neck, no masses or thyromegaly, trachea midline Normal rate and regular rhythm, no murmurs gallops or rubs appreciated. Clear to auscultation and symmetric bilaterally, normal respiratory effort. Normal bowel sounds, soft, non-tender, nondistended, no guarding. Extremities without clubbing, cyanosis, or edema. No rash of generalized distribution. Skin is warm and dry. Extremities without clubbing, cyanosis, or edema. NEUROLOGICAL: Awake and alert. Cranial nerves II through XII intact. Motor and sensory grossly within normal limits. Five out of 5 muscle strength in all muscle groups. Normal speech. Hospital Course is an 87 year old female who presented to the the ED on 07/03 after falling at home while making her way to the bathroom, did not hit her head. [place] weakness on left leg and came to hospital for evaluation for possible stroke. Her symptoms have now resolved, no new symptoms reported. CT in ED negative for bleed. MRI showed left basal ganglia infarct. Status post physical therapy evaluation, will need physical therapy at home. Carotid ultrasound no significant plaques. Blood pressure stable. Started on aspirin and pravastatin. Hemoglobin A1c is normal. Echocardiogram is pending, if normal, per neurology, may discharge to follow-up in 2 weeks. Pt Condition on Discharge: Good Discharge Disposition: Disch w/ Home Health Serv Discharge Instructions DIET: Follow Instructions for: Heart Healthy Diet Speech Therapy-Diet Recommends: Regular Activities you can perform: Regular-No Restrictions Follow up Referrals: Neurology - 2 Weeks PCP Follow-up - 1 Week New Medications: Aspirin (Aspirin) 325 Mg Tab 325 MG PO DAILY for CVA, #30 TAB Pravastatin (Pravachol) 40 Mg Tab 40 MG PO HS for Cholesterol Management, #30 TAB Continued Medications: Fish Oil-Cholecalciferol (Fish Oil + D3) 1,200-1,000 Mg-Unit Cap 1 CAP PO DAILY for Nutritional Supplement, #30 CAP 0 Refills Multiple Vitamin (Multi-Vitamin Daily) 1 Tab Tab 1 TAB PO DAILY for Nutritional Supplement, TAB 0 Refills Oyster Shell (Calcium) 500 Mg Calcium (1250 Mg) Tab Timolol Opth Drops (Timolol Opth Drops) 0.5 % Soln 1 DROP EACH EYE BID for Glaucoma, #1 BOTTLE 0 Refills Chloé Dixon MD Jul 05, 2017 16:20
--- NOTE | 2017-07-05 18:39 | ECHRPT ---
Indication: CVA/TIA CONCLUSIONS The left ventricular systolic function is moderately reduced with an estimated ejection fraction in the range of 40-45%. Doppler parameters are consistent with impaired left ventricular relaxtion (grade 1 diastolic dysfun ction). Mild mitral valve regurgitation. There is mild tricuspid valve regurgitation. BP: 155 / 86 HR: Rhythm: Sinus MEASUREMENTS (Male / Female) Normal Values Technical Quality:Fair 2D ECHO LV Diastolic Diameter PLAX 5.1 cm 4.2 - 5.9 / 3.9 - 5.3 cm LV Systolic Diameter PLAX 4.2 cm IVS Diastolic Thickness 0.8 cm 0.6 - 1.0 / 0.6 - 0.9 cm LVPW Diastolic Thickness 0.8 cm 0.6 - 1.0 / 0.6 - 0.9 cm LV Relative Wall Thickness 0.3 LVOT Diameter 1.8 cm Aortic Root Diameter 2.7 cm LA Systolic Diameter LX 1.3 cm 3.0 - 4.0 / 2.7 - 3.8 cm M-MODE AV Cusp Separation MM 1.5 cm DOPPLER AV Peak Velocity 105.0 cm/s AV Peak Gradient 4.4 mmHg AV Mean Gradient 2.0 mmHg AV Velocity Time Integral 19.9 cm AI Peak Velocity 445.5 cm/s AI Peak Gradient 79.4 mmHg AI Pressure Half Time 700.5 ms LVOT Peak Velocity 67.7 cm/s LVOT Peak Gradient 1.8 mmHg LVOT Velocity Time Integral 12.4 cm AV Area Cont Eq vti 1.6 cm AV Area Cont Eq pk 1.6 cm Mitral E Point Velocity 54.3 cm/s Mitral A Point Velocity 84.4 cm/s Mitral E to A Ratio 0.6 LV E' Lateral Velocity 5.9 cm/s Mitral E to LV E' Lateral Ratio 9.1 LV E' Septal Velocity 5.7 cm/s Mitral E to LV E' Septal Ratio 9.6 TR Peak Velocity 254.0 cm/s TR Peak Gradient 25.8 mmHg Right Atrial Pressure 10.0 mmHg Pulmonary Artery Systolic Pressu 35.8 mmHg Right Ventricular Systolic Press 35.8 mmHg PV Peak Velocity 47.4 cm/s PV Peak Gradient 0.9 mmHg FINDINGS LEFT VENTRICLE Normal left ventricular size. Wall thickness is normal. The left ventricular systolic function is moderately reduced with an estimated ejection fraction in the range of 40-45%. Doppler parameters are consistent with impaired left ventricular relaxtion (grade 1 diastolic dysfun ction). RIGHT VENTRICLE Normal right ventricular size and systolic function. LEFT ATRIUM The left atrial size is normal. RIGHT ATRIUM The right atrial size is normal. ATRIAL SEPTUM The interatrial septum not well visualized. AORTA The aortic root and proximal ascending aorta are normal in size on limited imaging. MITRAL VALVE Structurally normal mitral valve. No mitral valve stenosis. Mild mitral valve regurgitation. AORTIC VALVE Aortic valve sclerosis is present. Mild aortic valve regurgitation. No aortic valve stenosis. TRICUSPID VALVE Structurally normal tricuspid valve. There is mild tricuspid valve regurgitation. The estimated pulmonary arterial pressure is 35.8 mmHg. PULMONARY VALVE No pulmonary valve regurgitation or stenosis. VESSELS The inferior vena cava is normal in size. PERICARDIUM No pericardial effusion. Pedro Pablo Moffett DO (Electronically Signed) Final Date:05 July 2017 18:38
[2017-07-05] MEDS: PRAVASTATIN SOD 40 MG TAB PO SCH (20:50)
[2017-07-06] VITALS: BP 113/60; PULSE 60; RESP 16; TEMP 97.5; O2SAT 97
[2017-07-06 04:00] VITALS: BP 118/60; PULSE 63; RESP 16; TEMP 97.8; O2SAT 97
[2017-07-06 08:00] VITALS: BP 113/65; PULSE 76; RESP 18; TEMP 97.3; O2SAT 99
[2017-07-06] MEDS: INSULIN ASPART SUPPLEMENTAL SCALE SQ SCH (08:00)
[2017-07-06] MEDS: SODIUM CHLORIDE 0.9% FLUSH 5 ML FLUSH IV FLUSH SCH (08:03)
[2017-07-06] MEDS: ASPIRIN 325 MG TAB PO SCH (08:03)
[2017-07-06] MEDS: TIMOLOL MALEATE 0.5% OPHT SOLN 5 ML BTL EACH EYE SCH (08:03)
[2017-07-06 09:13] VITALS: PULSE 58
== END 2017-07-06 10:17 | disposition home health service (06) | DRG 66 ==
LOC: NEPE 16:13 → NEDA 18:16 → N05B 18:57
PROVIDERS: ADMIT Family Medicine; ATTEND Family Medicine
DX: I63.8 Other cerebral infarction (principal); E87.6 Hypokalemia; R53.1 Weakness; R29.810 Facial weakness; W19.XXXA Unspecified fall, initial encounter; Y92.009 Unspecified place in unspecified non-institutional (private) residence as the place of occurrence of the external cause; Z96.653 Presence of artificial knee joint, bilateral; H40.9 Unspecified glaucoma; Z85.3 Personal history of malignant neoplasm of breast
CPT/HCPCS: 70450; 70553; 71010; 76937; 80048; 80053; 80061; 81001; 82948; 83036; 84484; 85025; 85027; 85610; 93005; 93306; 93880; 99285; A9579; J3480; J7030

== ENCOUNTER 2018-05-07 19:44 | Inpatient (IN) ==
[2018-05-07] MEDS ORDERED: Vancomycin Inj 1,000 MG in Sodium Chlor 0.9% Inj 250 ML IV.SIG STA (20:01)
[2018-05-07] MEDS ORDERED: Aztreonam Inj 2 GM in Sodium Chloride 0.9% Inj 100 ML IV.SIG ONE (20:03)
[2018-05-07] MEDS ORDERED: Sod Chloride 0.9% Inj 800 ML IV.SIG SCH (20:15)
[2018-05-07] MEDS: Sod Chloride 0.9% Inj 1,000 ML IV.SIG SCH (20:21)
--- NOTE | 2018-05-07 20:29 | ED ---
HPI General Chief complaint: Weakness Stated complaint: Weakness Time Seen by Provider: 05/07/18 19:51 Source: patient and EMS Mode of arrival: EMS Limitations: altered mental status History of Present Illness HPI narrative: Is an 88-year-old woman presents to the emergency department reporting generalized weakness. She lives at home with her . They have a pants closer mostly helps with her . She reportedly is normally this evening she had worsening weakness, went to use the commode, and then could not get back up. Digital Commentator called EMS. EMS reports low-grade temperature, but otherwise no findings. Only medical history is remote CVA. Possibly remote breast CA. Takes a baby aspirin and some multivitamins. Related Data Home Medications Medication Instructions Recorded Confirmed aspirin [Aspirin Low Dose] 81 mg PO DAILY 05/07/18 05/07/18 Previous Rx's Medication Instructions Recorded clotrimazole 1 applicatio TOPICAL BID #1 g 05/11/18 Allergies Allergy/AdvReac Type Severity Reaction Status Date / Time penicillin G Allergy Severe rash as a Verified 05/07/18 19:51 teen Review of Systems ROS Unobtainable ROS Unobtainable: unobtainable due to mental status [facility] Medical History Medical History Breast cancer (Acute) Stroke (Acute) Family History Family History Other Family history normal Social History Social History Substance History: No History of Abuse Second Hand Smoke Exposure: No Smoking Status: Never smoker How Often Do You Have a Drink Containing Alcohol: Never Recent Travel in [facility] within the Last 8 Weeks: No Recent Out of Country Travel within the Last 8 Weeks: No Immunization History Tetanus Immunization: Unsure Hx Influenza Vaccine This Season: No Exam Narrative Exam Narrative: GENERAL: 88-year-old woman, nontoxic. SKIN: Focused skin assessment warm/dry. The entire right breast has a dark erythema with some induration redness. Plan she is just a little bit toward the extremities. Warm. No significant tenderness. On breast exam, there is a small hard nodule or mass in the 1 o'clock position on the right breast. Left breast is unremarkable. HEAD: Atraumatic. Normocephalic. EYES: Pupils equal and round. No scleral icterus. No injection or drainage. ENT: No nasal bleeding or discharge. Mucous membranes pink and moist. NECK: Trachea midline. No JVD. CARDIOVASCULAR: Heart rates older rapid. No murmurs. RESPIRATORY: No accessory muscle use. Clear to auscultation. Breath sounds equal bilaterally. GASTROINTESTINAL: Abdomen soft, non-tender, nondistended. Hepatic and splenic margins not palpable. MUSCULOSKELETAL: No obvious deformities. No edema. NEUROLOGICAL: Awake and alert. Some of her confusion. No facial asymmetry. Moves all extremities. No gross deficits. Course Initial Documented Vital Signs Temperature 98.9 F 05/07/18 19:48 Pulse Rate 93 H 05/07/18 19:48 Respiratory Rate 18 05/07/18 19:48 Blood Pressure 173/91 H 05/07/18 19:48 Pulse Oximetry 100 05/07/18 19:48 Last Documented Vital Signs Temperature 97.8 F 05/11/18 12:00 Pulse Rate 70 05/11/18 12:00 Respiratory Rate 16 05/11/18 12:00 Blood Pressure 150/69 H 05/11/18 12:00 Pulse Oximetry 96 05/11/18 12:00 Medical Decision Making [facility] Narrative Medical decision making narrative: Is an 88-year-old woman presents to the emergency department confusion weakness. Physical exam reveals erythema redness and warmth to the right breast suggestive of inflammatory malignancy are versus more likely soft tissue infection. Patient has low-grade fever tachycardia suggestive of sepsis. Will check labs, lactate, blood cultures. Patient's pen allergic. Will give empiric antibiotics for soft tissue infection and sepsis. Medical Screen Exam Complete: Yes Emergency Medical Condition: Yes Lab Data Result diagrams: 05/09/18 06:20 05/10/18 17:50 Lab Results 05/07/18 05/07/18 05/07/18 Range/Units 20:06 20:30 20:30 WBC (4.0-11.0) th/mm3 RBC (4.00-5.30) mil/mm3 Hgb (11.6-15.3) gm/dL Hct (35.0-46.0) % MCV (80.0-100.0) fL MCH (27.0-34.0) pg MCHC (32.0-36.0) % RDW (11.6-17.2) % Plt Count (150-450) th/mm3 MPV (7.0-11.0) fL Neut % (Auto) (16.0-70.0) % Lymph % (Auto) (9.0-44.0) % [place] % (Auto) (0.0-8.0) % Eos % (Auto) (0.0-4.0) % Baso % (Auto) (0.0-2.0) % Neut # (Auto) (1.8-7.7) th/mm3 Lymph # (Auto) (1.0-4.8) th/mm3 [place] # (Auto) (0.0-0.9) th/mm3 Eos # (Auto) (0.0-0.4) th/mm3 Baso # (Auto) (0.0-0.2) th/mm3 WBC Differential Differential Comment PT 10.2 (9.8-11.6) sec INR 1.0 Ratio APTT 24.4 (24.3-30.1) sec Sodium (136-145) meq/L Potassium (3.5-5.1) meq/L Chloride (98-107) meq/L Carbon Dioxide (21.0-32.0) meq/L Anion Gap (5-15) meq/L BUN (7-18) mg/dL Creatinine (0.50-1.00) mg/dL Estimated GFR (>89) mL/min POC Glucose (68-110) mg/dl Random Glucose (74-106) mg/dL Lactic Acid (0.4-2.0) mmol/L Calcium (8.5-10.1) mg/dL Magnesium 2.3 (1.5-2.5) mg/dL Total Bilirubin (0.2-1.0) mg/dL AST (15-37) U/L ALT (10-53) U/L Alkaline Phosphatase (45-117) U/L Troponin I Less than 0.02 L (0.02-0.05) ng/mL Total Protein (6.4-8.2) g/dL Albumin (3.4-5.0) g/dL Urine Color Straw (Yellw/Straw) Urine Clarity Clear (Clear) Urine pH 8.0 (5.0-8.5) Ur Specific [place] 1.006 (1.002-1.035) Urine Protein 30 H (Neg-Trace) mg/dL Urine Glucose (UA) Negative (Negative) mg/dL Urine Ketones Negative (Negative) mg/dL Urine Occult Blood Small H (Negative) Urine Nitrate Negative (Negative) Urine Bilirubin Negative (Negative) Urine Urobilinogen Less than 2 (Less than 2) mg/dL Ur Leukocyte Esterase Trace H (Negative) Urine RBC 4 H (0-3) /hpf Urine WBC 6 H (0-5) /hpf Ur Squamous Epith Cells 1 (0-5) /hpf Urine Bacteria Rare H (None) /hpf Urine Mucus Few H (Occasional) /lpf Micro UA Comment Culture not ind Ur Microscopic Review Not Reportable Urine Culture Comments Culture not ind Vancomycin Trough (5.0-10.0) mcg/mL 05/07/18 05/07/18 05/07/18 Range/Units 20:30 20:30 20:30 WBC 17.6 H (4.0-11.0) th/mm3 RBC 4.35 (4.00-5.30) mil/mm3 Hgb 14.8 (11.6-15.3) gm/dL Hct 43.3 (35.0-46.0) % MCV 99.5 (80.0-100.0) fL MCH 33.9 (27.0-34.0) pg MCHC 34.1 (32.0-36.0) % RDW 12.5 (11.6-17.2) % Plt Count 273 (150-450) th/mm3 MPV 7.3 (7.0-11.0) fL Neut % (Auto) 90.5 H (16.0-70.0) % Lymph % (Auto) 3.7 L (9.0-44.0) % [place] % (Auto) 5.3 (0.0-8.0) % Eos % (Auto) 0.2 (0.0-4.0) % Baso % (Auto) 0.3 (0.0-2.0) % Neut # (Auto) 16.0 H (1.8-7.7) th/mm3 Lymph # (Auto) 0.7 L (1.0-4.8) th/mm3 [place] # (Auto) 0.9 (0.0-0.9) th/mm3 Eos # (Auto) 0.0 (0.0-0.4) th/mm3 Baso # (Auto) 0.1 (0.0-0.2) th/mm3 WBC Differential . Differential Comment Auto diff final PT (9.8-11.6) sec INR Ratio APTT (24.3-30.1) sec Sodium 136 (136-145) meq/L Potassium 3.5 (3.5-5.1) meq/L Chloride 99 (98-107) meq/L Carbon Dioxide 26.2 (21.0-32.0) meq/L Anion Gap 11 (5-15) meq/L BUN 13 (7-18) mg/dL Creatinine 0.77 (0.50-1.00) mg/dL Estimated GFR 71 L (>89) mL/min POC Glucose (68-110) mg/dl Random Glucose 141 H (74-106) mg/dL Lactic Acid 2.7 H (0.4-2.0) mmol/L Calcium 9.1 (8.5-10.1) mg/dL Magnesium (1.5-2.5) mg/dL Total Bilirubin 0.7 (0.2-1.0) mg/dL AST 29 (15-37) U/L ALT 25 (10-53) U/L Alkaline Phosphatase 115 (45-117) U/L Troponin I (0.02-0.05) ng/mL Total Protein 7.9 (6.4-8.2) g/dL Albumin 4.0 (3.4-5.0) g/dL Urine Color (Yellw/Straw) Urine Clarity (Clear) Urine pH (5.0-8.5) Ur Specific [place] (1.002-1.035) Urine Protein (Neg-Trace) mg/dL Urine Glucose (UA) (Negative) mg/dL Urine Ketones (Negative) mg/dL Urine Occult Blood (Negative) Urine Nitrate (Negative) Urine Bilirubin (Negative) Urine Urobilinogen (Less than 2) mg/dL Ur Leukocyte Esterase (Negative) Urine RBC (0-3) /hpf Urine WBC (0-5) /hpf Ur Squamous Epith Cells (0-5) /hpf Urine Bacteria (None) /hpf Urine Mucus (Occasional) /lpf Micro UA Comment Ur Microscopic Review Urine Culture Comments Vancomycin Trough (5.0-10.0) mcg/mL 05/07/18 05/07/18 05/08/18 Range/Units 20:47 23:08 06:05 WBC 19.6 H (4.0-11.0) th/mm3 RBC 4.03 (4.00-5.30) mil/mm3 Hgb 13.5 (11.6-15.3) gm/dL Hct 40.2 (35.0-46.0) % MCV 99.8 (80.0-100.0) fL MCH 33.4 (27.0-34.0) pg MCHC 33.5 (32.0-36.0) % RDW 13.0 (11.6-17.2) % Plt Count 227 (150-450) th/mm3 MPV 7.2 (7.0-11.0) fL Neut % (Auto) 89.3 H (16.0-70.0) % Lymph % (Auto) 4.0 L (9.0-44.0) % [place] % (Auto) 6.5 (0.0-8.0) % Eos % (Auto) 0.0 (0.0-4.0) % Baso % (Auto) 0.2 (0.0-2.0) % Neut # (Auto) 17.5 H (1.8-7.7) th/mm3 Lymph # (Auto) 0.8 L (1.0-4.8) th/mm3 [place] # (Auto) 1.3 H (0.0-0.9) th/mm3 Eos # (Auto) 0.0 (0.0-0.4) th/mm3 Baso # (Auto) 0.0 (0.0-0.2) th/mm3 WBC Differential . Differential Comment Auto diff final PT (9.8-11.6) sec INR Ratio APTT (24.3-30.1) sec Sodium (136-145) meq/L Potassium (3.5-5.1) meq/L Chloride (98-107) meq/L Carbon Dioxide (21.0-32.0) meq/L Anion Gap (5-15) meq/L BUN (7-18) mg/dL Creatinine (0.50-1.00) mg/dL Estimated GFR (>89) mL/min POC Glucose 151 H (68-110) mg/dl Random Glucose (74-106) mg/dL Lactic Acid 1.5 (0.4-2.0) mmol/L Calcium (8.5-10.1) mg/dL Magnesium (1.5-2.5) mg/dL Total Bilirubin (0.2-1.0) mg/dL AST (15-37) U/L ALT (10-53) U/L Alkaline Phosphatase (45-117) U/L Troponin I (0.02-0.05) ng/mL Total Protein (6.4-8.2) g/dL Albumin (3.4-5.0) g/dL Urine Color (Yellw/Straw) Urine Clarity (Clear) Urine pH (5.0-8.5) Ur Specific [place] (1.002-1.035) Urine Protein (Neg-Trace) mg/dL Urine Glucose (UA) (Negative) mg/dL Urine Ketones (Negative) mg/dL Urine Occult Blood (Negative) Urine Nitrate (Negative) Urine Bilirubin (Negative) Urine Urobilinogen (Less than 2) mg/dL Ur Leukocyte Esterase (Negative) Urine RBC (0-3) /hpf Urine WBC (0-5) /hpf Ur Squamous Epith Cells (0-5) /hpf Urine Bacteria (None) /hpf Urine Mucus (Occasional) /lpf Micro UA Comment Ur Microscopic Review Urine Culture Comments Vancomycin Trough (5.0-10.0) mcg/mL 05/08/18 05/08/18 05/09/18 Range/Units 06:05 08:23 06:20 WBC 10.2 (4.0-11.0) th/mm3 RBC 3.67 L (4.00-5.30) mil/mm3 Hgb 12.5 (11.6-15.3) gm/dL Hct 36.4 (35.0-46.0) % MCV 99.0 (80.0-100.0) fL MCH 34.0 (27.0-34.0) pg MCHC 34.3 (32.0-36.0) % RDW 12.8 (11.6-17.2) % Plt Count 210 (150-450) th/mm3 MPV 7.0 (7.0-11.0) fL Neut % (Auto) 82.4 H (16.0-70.0) % Lymph % (Auto) 8.1 L (9.0-44.0) % [place] % (Auto) 8.9 H (0.0-8.0) % Eos % (Auto) 0.4 (0.0-4.0) % Baso % (Auto) 0.2 (0.0-2.0) % Neut # (Auto) 8.4 H (1.8-7.7) th/mm3 Lymph # (Auto) 0.8 L (1.0-4.8) th/mm3 [place] # (Auto) 0.9 (0.0-0.9) th/mm3 Eos # (Auto) 0.0 (0.0-0.4) th/mm3 Baso # (Auto) 0.0 (0.0-0.2) th/mm3 WBC Differential . Differential Comment Auto diff final PT (9.8-11.6) sec INR Ratio APTT (24.3-30.1) sec Sodium 141 (136-145) meq/L Potassium 3.2 L (3.5-5.1) meq/L Chloride 103 (98-107) meq/L Carbon Dioxide 24.9 (21.0-32.0) meq/L Anion Gap 13 (5-15) meq/L BUN 14 (7-18) mg/dL Creatinine 0.68 (0.50-1.00) mg/dL Estimated GFR 82 L (>89) mL/min POC Glucose 116 H (68-110) mg/dl Random Glucose 114 H (74-106) mg/dL Lactic Acid (0.4-2.0) mmol/L Calcium 8.2 L D (8.5-10.1) mg/dL Magnesium (1.5-2.5) mg/dL Total Bilirubin (0.2-1.0) mg/dL AST (15-37) U/L ALT (10-53) U/L Alkaline Phosphatase (45-117) U/L Troponin I (0.02-0.05) ng/mL Total Protein (6.4-8.2) g/dL Albumin (3.4-5.0) g/dL Urine Color (Yellw/Straw) Urine Clarity (Clear) Urine pH (5.0-8.5) Ur Specific [place] (1.002-1.035) Urine Protein (Neg-Trace) mg/dL Urine Glucose (UA) (Negative) mg/dL Urine Ketones (Negative) mg/dL Urine Occult Blood (Negative) Urine Nitrate (Negative) Urine Bilirubin (Negative) Urine Urobilinogen (Less than 2) mg/dL Ur Leukocyte Esterase (Negative) Urine RBC (0-3) /hpf Urine WBC (0-5) /hpf Ur Squamous Epith Cells (0-5) /hpf Urine Bacteria (None) /hpf Urine Mucus (Occasional) /lpf Micro UA Comment Ur Microscopic Review Urine Culture Comments Vancomycin Trough (5.0-10.0) mcg/mL 05/09/18 05/09/18 05/09/18 Range/Units 06:20 15:46 21:44 WBC (4.0-11.0) th/mm3 RBC (4.00-5.30) mil/mm3 Hgb (11.6-15.3) gm/dL Hct (35.0-46.0) % MCV (80.0-100.0) fL MCH (27.0-34.0) pg MCHC (32.0-36.0) % RDW (11.6-17.2) % Plt Count (150-450) th/mm3 MPV (7.0-11.0) fL Neut % (Auto) (16.0-70.0) % Lymph % (Auto) (9.0-44.0) % [place] % (Auto) (0.0-8.0) % Eos % (Auto) (0.0-4.0) % Baso % (Auto) (0.0-2.0) % Neut # (Auto) (1.8-7.7) th/mm3 Lymph # (Auto) (1.0-4.8) th/mm3 [place] # (Auto) (0.0-0.9) th/mm3 Eos # (Auto) (0.0-0.4) th/mm3 Baso # (Auto) (0.0-0.2) th/mm3 WBC Differential Differential Comment PT (9.8-11.6) sec INR Ratio APTT (24.3-30.1) sec Sodium 141 (136-145) meq/L Potassium 3.3 L (3.5-5.1) meq/L Chloride 106 (98-107) meq/L Carbon Dioxide 24.2 (21.0-32.0) meq/L Anion Gap 11 (5-15) meq/L BUN 12 (7-18) mg/dL Creatinine 0.47 L (0.50-1.00) mg/dL Estimated GFR Greater than 89 (>89) mL/min POC Glucose 101 (68-110) mg/dl Random Glucose 92 (74-106) mg/dL Lactic Acid (0.4-2.0) mmol/L Calcium 7.7 L (8.5-10.1) mg/dL Magnesium 2.3 2.0 (1.5-2.5) mg/dL Total Bilirubin (0.2-1.0) mg/dL AST (15-37) U/L ALT (10-53) U/L Alkaline Phosphatase (45-117) U/L Troponin I (0.02-0.05) ng/mL Total Protein (6.4-8.2) g/dL Albumin (3.4-5.0) g/dL Urine Color (Yellw/Straw) Urine Clarity (Clear) Urine pH (5.0-8.5) Ur Specific [place] (1.002-1.035) Urine Protein (Neg-Trace) mg/dL Urine Glucose (UA) (Negative) mg/dL Urine Ketones (Negative) mg/dL Urine Occult Blood (Negative) Urine Nitrate (Negative) Urine Bilirubin (Negative) Urine Urobilinogen (Less than 2) mg/dL Ur Leukocyte Esterase (Negative) Urine RBC (0-3) /hpf Urine WBC (0-5) /hpf Ur Squamous Epith Cells (0-5) /hpf Urine Bacteria (None) /hpf Urine Mucus (Occasional) /lpf Micro UA Comment Ur Microscopic Review Urine Culture Comments Vancomycin Trough (5.0-10.0) mcg/mL 05/10/18 Range/Units 17:50 WBC (4.0-11.0) th/mm3 RBC (4.00-5.30) mil/mm3 Hgb (11.6-15.3) gm/dL Hct (35.0-46.0) % MCV (80.0-100.0) fL MCH (27.0-34.0) pg MCHC (32.0-36.0) % RDW (11.6-17.2) % Plt Count (150-450) th/mm3 MPV (7.0-11.0) fL Neut % (Auto) (16.0-70.0) % Lymph % (Auto) (9.0-44.0) % [place] % (Auto) (0.0-8.0) % Eos % (Auto) (0.0-4.0) % Baso % (Auto) (0.0-2.0) % Neut # (Auto) (1.8-7.7) th/mm3 Lymph # (Auto) (1.0-4.8) th/mm3 [place] # (Auto) (0.0-0.9) th/mm3 Eos # (Auto) (0.0-0.4) th/mm3 Baso # (Auto) (0.0-0.2) th/mm3 WBC Differential Differential Comment PT (9.8-11.6) sec INR Ratio APTT (24.3-30.1) sec Sodium 139 (136-145) meq/L Potassium 3.9 (3.5-5.1) meq/L Chloride 108 H (98-107) meq/L Carbon Dioxide 21.4 (21.0-32.0) meq/L Anion Gap 10 (5-15) meq/L BUN 13 (7-18) mg/dL Creatinine 0.45 L (0.50-1.00) mg/dL Estimated GFR Greater than 89 (>89) mL/min POC Glucose (68-110) mg/dl Random Glucose 128 H (74-106) mg/dL Lactic Acid (0.4-2.0) mmol/L Calcium 8.0 L (8.5-10.1) mg/dL Magnesium (1.5-2.5) mg/dL Total Bilirubin (0.2-1.0) mg/dL AST (15-37) U/L ALT (10-53) U/L Alkaline Phosphatase (45-117) U/L Troponin I (0.02-0.05) ng/mL Total Protein (6.4-8.2) g/dL Albumin (3.4-5.0) g/dL Urine Color (Yellw/Straw) Urine Clarity (Clear) Urine pH (5.0-8.5) Ur Specific [place] (1.002-1.035) Urine Protein (Neg-Trace) mg/dL Urine Glucose (UA) (Negative) mg/dL Urine Ketones (Negative) mg/dL Urine Occult Blood (Negative) Urine Nitrate (Negative) Urine Bilirubin (Negative) Urine Urobilinogen (Less than 2) mg/dL Ur Leukocyte Esterase (Negative) Urine RBC (0-3) /hpf Urine WBC (0-5) /hpf Ur Squamous Epith Cells (0-5) /hpf Urine Bacteria (None) /hpf Urine Mucus (Occasional) /lpf Micro UA Comment Ur Microscopic Review Urine Culture Comments Vancomycin Trough 6.2 (5.0-10.0) mcg/mL Imaging Data Radiologist's impression: Chest X-Ray 05/07/18 20:01 CONCLUSION: 1. No acute cardiopulmonary disease. 2. Degenerative changes and scoliosis of the thoracolumbar spine. 3. 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 Breast Ultrasound 05/08/18 00:00 CONCLUSION: 1. No evidence of abscess. No abnormal mass or adenopathy is seen. Discharge Plan Discharge Disposition Patient Disposition: 01 Discharge Home Discharge Condition Condition: Good Discharge Order Discharge Orders: Discharge Order (Routine); Ordered 05/11/18 Ordered By: Gary Huang Physicians Team ED Provider: Moises Abreu Primary Care Provider: UNKNOWN, Attending Provider: Gary Huang Status ED Status: Left Department Discharge Information Discharge Date/Time: 05/08/18 00:04
[2018-05-07 20:36] LABS: Bacteria,Urine Rare /hpf; Bilirubin,Urine Negative (Negative); Clarity,Urine Clear (Clear); Color,Urine Straw (Yellw/Straw); Glucose,Urine (UA) Negative (Negative); Leukocyte Esterase,Urine Trace (Negative); Mucus,Urine Few /lpf (Occasional); Nitrite,Urine Negative (Negative); Specific Gravity,Urine 1.006 (1.002-1.035); Squamous Epithelial Cell,Urine 1 /hpf (0-5)
[2018-05-07 21:03] LABS: Baso # (Auto) 0.1 th/mm3 (0.0-0.2); Baso % (Auto) 0.3 % (0.0-2.0); Eos % (Auto) 0.2 % (0.0-4.0); Hematocrit 43.3 % (35.0-46.0); Hemoglobin 14.8 gm/dL (11.6-15.3); Lymph # (Auto) 0.7 th/mm3 (1.0-4.8); Lymph % (Auto) 3.7 % (9.0-44.0); Mean Corpuscular HGB Conc 34.1 % (32.0-36.0); Mean Corpuscular Hemoglobin 33.9 pg (27.0-34.0); Mean Corpuscular Volume 99.5 fL (80.0-100.0); Mean Platelet Volume 7.3 fL (7.0-11.0); Mono # (Auto) 0.9 th/mm3 (0.0-0.9); Mono % (Auto) 5.3 % (0.0-8.0); Neut % (Auto) 90.5 % (16.0-70.0); Platelet Count 273 th/mm3 (150-450); Red Blood Count 4.35 mil/mm3 (4.00-5.30); Red Cell Distribution Width 12.5 % (11.6-17.2); White Blood Count 17.6 th/mm3 (4.0-11.0)
[2018-05-07 21:10] LABS: Activated Partial Thrombo Time 24.4 sec (24.3-30.1); Prothrombin Time 10.2 sec (9.8-11.6)
--- NOTE | 2018-05-07 21:10 | XR ---
EXAM DATE: 05/07/2018 9:02 PM EDT AGE/SEX: 88 years / Female INDICATIONS: Weakness, fever starting today CLINICAL DATA: This is the patient's initial encounter. Patient reports that signs and symptoms have been present for 1 day and indicates a pain score of 0/10. MEDICAL/SURGICAL HISTORY: Carcinoma, breast. None. COMPARISON: [facility] [place] SINGLE AP, 07/03/2017. . FINDINGS: A single AP view of the chest demonstrates the lungs to be symmetrically aerated without evidence of mass, infiltrate or effusion. The cardiomediastinal contours are unremarkable. Degenerative changes and scoliosis of the thoracolumbar spine are noted. 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 CONCLUSION: 1. No acute cardiopulmonary disease. 2. Degenerative changes and scoliosis of the thoracolumbar spine. 3. Significant deformities involving the humeral heads are noted bilaterally consistent with probabl e avascular necrosis and severe arthritic changes bilaterally. Electronically signed by: Ismael Castañeda MD 05/07/2018 9:08 PM EDT
[2018-05-07 21:25] LABS: Anion Gap 11 meq/L (5-15); Aspartate Aminotransferase 29 U/L (15-37); Blood Urea Nitrogen 13 mg/dL (7-18); Calcium 9.1 mg/dL (8.5-10.1); Carbon Dioxide 26.2 meq/L (21.0-32.0); Chloride 99 meq/L (98-107); Glomerular Filtration Rate 71 mL/min (>89); Glucose,Random 141 mg/dL (74-106); Potassium 3.5 meq/L (3.5-5.1); Sodium 136 meq/L (136-145)
[2018-05-07 21:26] LABS: Alanine Aminotransferase 25 U/L (10-53); Magnesium 2.3 mg/dL (1.5-2.5)
[2018-05-07 21:29] LABS: Alkaline Phosphatase 115 U/L (45-117); Total Protein 7.9 g/dL (6.4-8.2)
[2018-05-07] MEDS ORDERED: Vancomycin Consult Pharmacy OTHER PRN (22:55)
[2018-05-07] MEDS ORDERED: Acetaminophen 325 MG Tablet PO PRN (22:56)
[2018-05-07] MEDS ORDERED: Bisacodyl 10 MG Supp RECTAL PRN (22:56)
--- NOTE | 2018-05-07 23:04 | P.HP ---
History of Present Illness Service: [facility] Primary Care Physician: UNKNOWN History of Present Illness: 88-year-old female with a past medical history significant for remote history of breast cancer presents to the emergency department for evaluation of dizziness and fatigue. The patient reports she went to the restroom today after feeling lightheaded and well she was sitting on the toilet was then unable to get up secondary to weakness. She denies any fever/chills. No loss of consciousness. No chest pain or shortness of breath. No abdominal pain. No nausea/vomiting/diarrhea. No lateralizing signs/symptoms. Inpatient Certification: I certify that the inpatient services were ordered in accordance with Medicare regulations governing the order. This includes certification that hospital inpatient services are reasonable and necessary and in the case of services not specified as inpatient-only under 42 CFR 419.22(n), that they are appropriately provided as inpatient services in accordance to with the 2-midnight benchmark under 43 CFR 412.3(e) Estimated Total Length of Stay (Days): 2 Plans for Post Hospital Care: Not yet determined Review of Systems All other systems reviewed negative except as stated in HPI [facility] - History History Provided By: Patient - Medical History Medical History: Medical History (Last Reviewed 05/07/18 @ 20:27 by Moises Abreu MD) Breast cancer Stroke - Surgical History Surgical History: Surgical History (Last Updated 05/07/18 @ 22:59 by Risa Sanches MD) H/O mastectomy - Family History Family History: Family History (Last Updated 05/07/18 @ 22:59 by Risa Sanches MD) Other Family history normal - Tobacco History Second Hand Smoke Exposure: No Smoking Status: Never smoker - Alcohol History How Often Do You Have a Drink Containing Alcohol: Never - Substance Use History Substance History: No History of Abuse - Travel History Recent Travel in the [place] Within the Last 8 Weeks: No Recent Travel Out of the Country Within the Last 8 Weeks: No - Immunization History Tetanus Immunization: Unsure Hx Influenza Vaccine This Season: No Medications and Allergies Active Medications: Active Medications Sodium Chloride (Ns Inj) 1,000 mls @ 0 mls/hr IV.SIG .Q0M SOURAV Last Infusion: 05/07/18 21:36 Dose: Infused Sodium Chloride (Ns Inj) 800 mls @ 0 mls/hr IV.SIG .Q0M OSURAV Allergies Allergy/AdvReac Type Severity Reaction Status Date / Time penicillin G Allergy Severe rash as a Verified 05/07/18 19:51 teen Home Medications Medication Instructions Recorded Confirmed Type aspirin [Aspirin Low Dose] 81 mg PO DAILY 05/07/18 05/07/18 History Exam Vital signs: Vital Signs 05/07/18 19:48 05/07/18 20:16 05/07/18 20:39 Temperature 98.9 F 102.8 F H Pulse Rate 93 H 92 H Respiratory Rate 18 Blood Pressure 173/91 H Pulse Oximetry 100 98 05/07/18 21:42 Temperature Pulse Rate 86 Respiratory Rate 17 Blood Pressure 132/60 Pulse Oximetry 98 Intake & Output 05/07/18 05/07/18 05/08/18 06:59 18:59 06:59 Intake Total 1100 / 1100 Balance 1100 / 1100 Weight 58.06 kg Intake: IV 1100 / 1100 NS Inj 1,000 ML @ Wide Open IV. 1000 / 1000 SIG .Q0M SOURAV Rx#:[id number] Flagyl 500 MG Inj 100 ML @ 100 100 / 100 mls/hr IV.SIG ONCE ONE Rx#: [id number] Narrative: Gen.: No acute distress Head: Normocephalic. Atraumatic. EENT: Pupils equal round and reactive to light. Nose without drainage. Airway intact. Throat without injection. Cardiovascular: Regular rate and rhythm. No murmurs, rubs or gallops. Respiratory: Lungs clear to auscultation bilaterally. No wheezes or rhonchi. Abdomen: Soft, nontender, nondistended. No peritoneal signs. Musculoskeletal: No gross deformities. No edema. Skin: Area of erythema along right breast extending into the axilla. Warm to the touch. No induration or fluctuance. Neuro: Sensory and motor grossly intact. Cranial nerves II through XII grossly intact. Results - Labs CBC & Chem 7: 05/07/18 20:30 05/07/18 20:30 Labs: Laboratory Results - last 24 hr 05/07/18 05/07/18 05/07/18 20:06 20:30 20:30 WBC RBC Hgb Hct MCV MCH MCHC RDW Plt Count MPV Neut % (Auto) Lymph % (Auto) [place] % (Auto) Eos % (Auto) Baso % (Auto) Neut # (Auto) Lymph # (Auto) [place] # (Auto) Eos # (Auto) Baso # (Auto) WBC Differential Differential Comment PT 10.2 INR 1.0 APTT 24.4 Sodium Potassium Chloride Carbon Dioxide Anion Gap BUN Creatinine Estimated GFR POC Glucose Random Glucose Lactic Acid Calcium Magnesium 2.3 Total Bilirubin AST ALT Alkaline Phosphatase Troponin I Less than 0.02 L Total Protein Albumin Urine Color Straw Urine Clarity Clear Urine pH 8.0 Ur Specific Jay 1.006 Urine Protein 30 H Urine Glucose (UA) Negative Urine Ketones Negative Urine Occult Blood Small H Urine Nitrate Negative Urine Bilirubin Negative Urine Urobilinogen Less than 2 Ur Leukocyte Esterase Trace H Urine RBC 4 H Urine WBC 6 H Ur Squamous Epith Cells 1 Urine Bacteria Rare H Urine Mucus Few H Micro UA Comment Culture not ind Ur Microscopic Review Not Reportable Urine Culture Comments Culture not ind 05/07/18 05/07/18 05/07/18 20:30 20:30 20:30 WBC 17.6 H RBC 4.35 Hgb 14.8 Hct 43.3 MCV 99.5 MCH 33.9 MCHC 34.1 RDW 12.5 Plt Count 273 MPV 7.3 Neut % (Auto) 90.5 H Lymph % (Auto) 3.7 L [place] % (Auto) 5.3 Eos % (Auto) 0.2 Baso % (Auto) 0.3 Neut # (Auto) 16.0 H Lymph # (Auto) 0.7 L [place] # (Auto) 0.9 Eos # (Auto) 0.0 Baso # (Auto) 0.1 WBC Differential . Differential Comment Auto diff final PT INR APTT Sodium 136 Potassium 3.5 Chloride 99 Carbon Dioxide 26.2 Anion Gap 11 BUN 13 Creatinine 0.77 Estimated GFR 71 L POC Glucose Random Glucose 141 H Lactic Acid 2.7 H Calcium 9.1 Magnesium Total Bilirubin 0.7 AST 29 ALT 25 Alkaline Phosphatase 115 Troponin I Total Protein 7.9 Albumin 4.0 Urine Color Urine Clarity Urine pH Ur Specific Jay Urine Protein Urine Glucose (UA) Urine Ketones Urine Occult Blood Urine Nitrate Urine Bilirubin Urine Urobilinogen Ur Leukocyte Esterase Urine RBC Urine WBC Ur Squamous Epith Cells Urine Bacteria Urine Mucus Micro UA Comment Ur Microscopic Review Urine Culture Comments 05/07/18 20:47 WBC RBC Hgb Hct MCV MCH MCHC RDW Plt Count MPV Neut % (Auto) Lymph % (Auto) [place] % (Auto) Eos % (Auto) Baso % (Auto) Neut # (Auto) Lymph # (Auto) [place] # (Auto) Eos # (Auto) Baso # (Auto) WBC Differential Differential Comment PT INR APTT Sodium Potassium Chloride Carbon Dioxide Anion Gap BUN Creatinine Estimated GFR POC Glucose 151 H Random Glucose Lactic Acid Calcium Magnesium Total Bilirubin AST ALT Alkaline Phosphatase Troponin I Total Protein Albumin Urine Color Urine Clarity Urine pH Ur Specific Jay Urine Protein Urine Glucose (UA) Urine Ketones Urine Occult Blood Urine Nitrate Urine Bilirubin Urine Urobilinogen Ur Leukocyte Esterase Urine RBC Urine WBC Ur Squamous Epith Cells Urine Bacteria Urine Mucus Micro UA Comment Ur Microscopic Review Urine Culture Comments - Imaging Impressions Chest X-Ray 05/07/18 20:01 CONCLUSION: 1. No acute cardiopulmonary disease. 2. Degenerative changes and scoliosis of the thoracolumbar spine. 3. 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 Caprini VTE Risk Assessment Caprini VTE Risk Assessment: Moderate/High Risk (score >= 2) Caprini Risk Assessment Model: Point Value = 1 Point Value = 2 Point Value = 3 Point Value = 5 Age 41-60 Minor surgery BMI > 25 kg/m2 Swollen legs Varicose veins or History of unexplained or recurrent spontaneous Oral contraceptives or hormone replacement Sepsis (< 1 month) Serious lung disease, including pneumonia (< 1 month) Abnormal pulmonary function Acute myocardial infarction Congestive heart failure (< 1 month) History of inflammatory bowel disease Medical patient at bed rest Age 61-74 Arthroscopic surgery Major open surgery (> 45 min) Laparoscopic surgery (> 45 min) Malignancy Confined to bed (> 72 hours) Immobilizing plaster cast Central venous access Age >= 75 History of VTE Family history of VTE Factor V Leiden Prothrombin [id number] Lupus anticoagulant Anticardiolipin antibodies Elevated serum homocysteine Heparin-induced thrombocytopenia Other congenital or acquired thrombophilia Stroke (< 1 month) Elective arthroplasty Hip, pelvis, or leg fracture Acute spinal cord injury (< 1 month) Prophylaxis Regimen: Total Risk Factor Score Risk Level Prophylaxis Regimen 0-1 Low Early ambulation 2 Moderate Order ONE of the following: *Sequential Compression Device (SCD) *Heparin 5000 units SQ BID 3-4 Higher Order ONE of the following medications: *Heparin 5000 units SQ TID *Enoxaparin/Lovenox 40 mg SQ daily (WT < 150 kg, CrCl > 30 mL/min) *Enoxaparin/Lovenox 30 mg SQ daily (WT < 150 kg, CrCl > 10-29 mL/min) *Enoxaparin/Lovenox 30 mg SQ BID (WT < 150 kg, CrCl > 30 mL/min) AND/OR *Sequential Compression Device (SCD) 5 or more Highest Order ONE of the following medications: *Heparin 5000 units SQ TID (Preferred with Epidurals) *Enoxaparin/Lovenox 40 mg SQ daily (WT < 150 kg, CrCl > 30 mL/min) *Enoxaparin/Lovenox 30 mg SQ daily (WT < 150 kg, CrCl > 10-29 mL/min) *Enoxaparin/Lovenox 30 mg SQ BID (WT < 150 kg, CrCl > 30 mL/min) AND *Sequential Compression Device (SCD) Assessment and Plan - Plan Assessment/plan: 1. Cellulitis/sepsis Patient with cellulitis of the right breast Leukocytosis, elevated lactic acid, fever, tachycardia Aztreonam, Flagyl, vancomycin secondary to penicillin allergy Blood cultures pending 2. Weakness/dizziness Likely secondary to above 3. History of breast cancer Remote FEN Regular diet Electrolytes: Monitor and replete as needed NS at 100 cc/hour Heparin
[2018-05-08] MEDS: Sod Chloride 0.9% Inj 1,000 ML IV.CONT SCH ×3 (00:41→18:30)
[2018-05-08] MEDS: Aztreonam Inj 2 GM in Sodium Chloride 0.9% Inj 100 ML IV.SIG SCH ×3 (04:18→21:28)
[2018-05-08 08:09] LABS: Baso % (Auto) 0.2 % (0.0-2.0); Hematocrit 40.2 % (35.0-46.0); Hemoglobin 13.5 gm/dL (11.6-15.3); Lymph # (Auto) 0.8 th/mm3 (1.0-4.8); Mean Corpuscular HGB Conc 33.5 % (32.0-36.0); Mean Corpuscular Hemoglobin 33.4 pg (27.0-34.0); Mean Corpuscular Volume 99.8 fL (80.0-100.0); Mean Platelet Volume 7.2 fL (7.0-11.0); Mono # (Auto) 1.3 th/mm3 (0.0-0.9); Mono % (Auto) 6.5 % (0.0-8.0); Neut # (Auto) 17.5 th/mm3 (1.8-7.7); Neut % (Auto) 89.3 % (16.0-70.0); Platelet Count 227 th/mm3 (150-450); Red Blood Count 4.03 mil/mm3 (4.00-5.30); White Blood Count 19.6 th/mm3 (4.0-11.0)
[2018-05-08] MEDS: Senna/Docusate Sodium 8.6/50 MG Tablet PO SCH ×2 (08:24→20:03)
[2018-05-08] MEDS: Heparin - SQ 10,000 UNITS/ML Vial SQ SCH ×2 (08:24→20:03)
[2018-05-08 08:29] LABS: Calcium 8.2 mg/dL (8.5-10.1); Carbon Dioxide 24.9 meq/L (21.0-32.0); Potassium 3.2 meq/L (3.5-5.1)
[2018-05-08] MEDS ORDERED: Potassium Chloride 25 MEQ Effervescent Tablet PO ONE (10:00)
--- NOTE | 2018-05-08 14:21 | P.PNIM ---
Subjective Interval history: Patient complains of mild pain of the right lateral breast. Physical Exam Vital signs: Vital Signs 05/07/18 19:48 05/07/18 20:16 05/07/18 20:39 Temperature 98.9 F 102.8 F H Pulse Rate 93 H 92 H Respiratory Rate 18 Blood Pressure 173/91 H Pulse Oximetry 100 98 05/07/18 21:42 05/07/18 23:17 05/08/18 00:00 Temperature 98.0 F Pulse Rate 86 86 86 Respiratory Rate 17 17 16 Blood Pressure 132/60 118/56 L 114/56 L Pulse Oximetry 98 95 98 05/08/18 01:26 05/08/18 04:00 05/08/18 09:11 Temperature 98.5 F 98.3 F Pulse Rate 81 83 82 Respiratory Rate 16 18 Blood Pressure 118/55 L 117/58 L Pulse Oximetry 99 98 05/08/18 12:43 Temperature 98.0 F Pulse Rate 70 Respiratory Rate 18 Blood Pressure 131/61 Pulse Oximetry 98 Intake & Output 05/07/18 05/08/18 05/08/18 18:59 06:59 18:59 Intake Total 1660 / 1660 Balance 1660 / 1660 Weight 59.1 kg Intake: IV 1660 / 1660 Azactam Inj 2 GM In NS Inj 100 200 / 200 ML @ 200 mls/hr IV.SIG Q8H SOURAV Rx#:[id number] NS Inj 1,000 ML @ Wide Open IV. 1000 / 1000 SIG .Q0M SOURAV Rx#:[id number] Vancomycin Inj 1,000 MG In NS 260 / 260 Inj 250 ML @ 250 mls/hr IV.SIG STAT STA Rx#:[id number] Flagyl 500 MG Inj 100 ML @ 100 200 / 200 mls/hr IV.SIG Q8H SOURAV Rx#: [id number] Other: Date of Last Bowel Movement 05/07/18 Weight On Admission 62.596 kg Narrative: General patient in no acute distress HEENT extraocular movements are intact, clear oropharyngeal mucosa, no JVD Right breast shows erythema redness swelling of the lateral right breast, no nipple inversion, no active drainage Cardiovascular S1-S2 audible, RRR, no murmurs rubs or gallops Respiratory clear to auscultation bilaterally Abdomen soft, nontender, nondistended, normal bowel sounds Extremities patient has multiple bruises on the bilateral upper extremities, frail skin. The physical examination of the breast was done with the nurse at the patient's bedside. Results - Labs CBC & Chem 7: 05/08/18 06:05 05/08/18 06:05 Laboratory Results - last 24 hr 05/07/18 05/07/18 05/07/18 20:06 20:30 20:30 WBC RBC Hgb Hct MCV MCH MCHC RDW Plt Count MPV Neut % (Auto) Lymph % (Auto) [place] % (Auto) Eos % (Auto) Baso % (Auto) Neut # (Auto) Lymph # (Auto) [place] # (Auto) Eos # (Auto) Baso # (Auto) WBC Differential Differential Comment PT 10.2 INR 1.0 APTT 24.4 Sodium Potassium Chloride Carbon Dioxide Anion Gap BUN Creatinine Estimated GFR POC Glucose Random Glucose Lactic Acid Calcium Magnesium 2.3 Total Bilirubin AST ALT Alkaline Phosphatase Troponin I Less than 0.02 L Total Protein Albumin Urine Color Straw Urine Clarity Clear Urine pH 8.0 Ur Specific [place] 1.006 Urine Protein 30 H Urine Glucose (UA) Negative Urine Ketones Negative Urine Occult Blood Small H Urine Nitrate Negative Urine Bilirubin Negative Urine Urobilinogen Less than 2 Ur Leukocyte Esterase Trace H Urine RBC 4 H Urine WBC 6 H Ur Squamous Epith Cells 1 Urine Bacteria Rare H Urine Mucus Few H Micro UA Comment Culture not ind Ur Microscopic Review Not Reportable Urine Culture Comments Culture not ind 05/07/18 05/07/18 05/07/18 20:30 20:30 20:30 WBC 17.6 H RBC 4.35 Hgb 14.8 Hct 43.3 MCV 99.5 MCH 33.9 MCHC 34.1 RDW 12.5 Plt Count 273 MPV 7.3 Neut % (Auto) 90.5 H Lymph % (Auto) 3.7 L [place] % (Auto) 5.3 Eos % (Auto) 0.2 Baso % (Auto) 0.3 Neut # (Auto) 16.0 H Lymph # (Auto) 0.7 L [place] # (Auto) 0.9 Eos # (Auto) 0.0 Baso # (Auto) 0.1 WBC Differential . Differential Comment Auto diff final PT INR APTT Sodium 136 Potassium 3.5 Chloride 99 Carbon Dioxide 26.2 Anion Gap 11 BUN 13 Creatinine 0.77 Estimated GFR 71 L POC Glucose Random Glucose 141 H Lactic Acid 2.7 H Calcium 9.1 Magnesium Total Bilirubin 0.7 AST 29 ALT 25 Alkaline Phosphatase 115 Troponin I Total Protein 7.9 Albumin 4.0 Urine Color Urine Clarity Urine pH Ur Specific [place] Urine Protein Urine Glucose (UA) Urine Ketones Urine Occult Blood Urine Nitrate Urine Bilirubin Urine Urobilinogen Ur Leukocyte Esterase Urine RBC Urine WBC Ur Squamous Epith Cells Urine Bacteria Urine Mucus Micro UA Comment Ur Microscopic Review Urine Culture Comments 05/07/18 05/07/18 05/08/18 20:47 23:08 06:05 WBC 19.6 H RBC 4.03 Hgb 13.5 Hct 40.2 MCV 99.8 MCH 33.4 MCHC 33.5 RDW 13.0 Plt Count 227 MPV 7.2 Neut % (Auto) 89.3 H Lymph % (Auto) 4.0 L [place] % (Auto) 6.5 Eos % (Auto) 0.0 Baso % (Auto) 0.2 Neut # (Auto) 17.5 H Lymph # (Auto) 0.8 L [place] # (Auto) 1.3 H Eos # (Auto) 0.0 Baso # (Auto) 0.0 WBC Differential . Differential Comment Auto diff final PT INR APTT Sodium Potassium Chloride Carbon Dioxide Anion Gap BUN Creatinine Estimated GFR POC Glucose 151 H Random Glucose Lactic Acid 1.5 Calcium Magnesium Total Bilirubin AST ALT Alkaline Phosphatase Troponin I Total Protein Albumin Urine Color Urine Clarity Urine pH Ur Specific [place] Urine Protein Urine Glucose (UA) Urine Ketones Urine Occult Blood Urine Nitrate Urine Bilirubin Urine Urobilinogen Ur Leukocyte Esterase Urine RBC Urine WBC Ur Squamous Epith Cells Urine Bacteria Urine Mucus Micro UA Comment Ur Microscopic Review Urine Culture Comments 05/08/18 05/08/18 06:05 08:23 WBC RBC Hgb Hct MCV MCH MCHC RDW Plt Count MPV Neut % (Auto) Lymph % (Auto) [place] % (Auto) Eos % (Auto) Baso % (Auto) Neut # (Auto) Lymph # (Auto) [place] # (Auto) Eos # (Auto) Baso # (Auto) WBC Differential Differential Comment PT INR APTT Sodium 141 Potassium 3.2 L Chloride 103 Carbon Dioxide 24.9 Anion Gap 13 BUN 14 Creatinine 0.68 Estimated GFR 82 L POC Glucose 116 H Random Glucose 114 H Lactic Acid Calcium 8.2 L D Magnesium Total Bilirubin AST ALT Alkaline Phosphatase Troponin I Total Protein Albumin Urine Color Urine Clarity Urine pH Ur Specific [place] Urine Protein Urine Glucose (UA) Urine Ketones Urine Occult Blood Urine Nitrate Urine Bilirubin Urine Urobilinogen Ur Leukocyte Esterase Urine RBC Urine WBC Ur Squamous Epith Cells Urine Bacteria Urine Mucus Micro UA Comment Ur Microscopic Review Urine Culture Comments Microbiology 05/07/18 20:30 Blood - Peripheral Aerobic Blood Culture - Preliminary No growth in 1 day 05/07/18 20:30 Blood - Peripheral Anaerobic Blood Culture - Preliminary No growth in 1 day 05/07/18 20:20 Blood - Peripheral Aerobic Blood Culture - Preliminary No growth in 1 day 05/07/18 20:20 Blood - Peripheral Anaerobic Blood Culture - Preliminary No growth in 1 day - Imaging Impressions Chest X-Ray 05/07/18 20:01 CONCLUSION: 1. No acute cardiopulmonary disease. 2. Degenerative changes and scoliosis of the thoracolumbar spine. 3. 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 Assessment and Plan - Plan This patient is an 88-year-old female with a past medical history of right- sided breast cancer who presented to our emergency department after having difficulty getting up at home from the toilet. She called for help and was brought into the emergency department for evaluation. On evaluation she was found to have redness erythema and swelling of the right lateral breast. 1. Severe sepsis likely secondary to right breast cellulitis with concern for abscess. The patient has an elevated WBC count which is slightly increased since her admission. Febrile with a temp of 102.8, Lactate was elevated at 2.7 which has now normalized. She is currently afebrile the patient is currently on IV fluids and IV antibiotics we will continue IV antibiotics for today and ultrasound of the right breast will be ordered to evaluate for possible abscess. She currently does not have any complaints of pain of the right breast. We will follow up on ultrasound results as well as blood cultures. In a.m. BMP and CBC have been ordered.
--- NOTE | 2018-05-08 17:37 | US ---
EXAM DATE: 05/08/2018 5:25 PM EDT AGE/SEX: 88 years / Female INDICATIONS: Abscess. CLINICAL DATA: This is the patient's initial encounter. Patient reports that signs and symptoms have been present for 4 - 6 days and indicates a pain score of 2/10. MEDICAL/SURGICAL HISTORY: Stroke. Breast cancer. . Mastectomy. COMPARISON: [facility], [facility] SCREENING MAMMOGRAM W/ ZAID, BILATERAL, 02/20/2017. . TECHNIQUE: Real-time ultrasound examination was performed using a high-frequency transducer. Conven tional and compound scanning techniques were used. FINDINGS: Imaging of the right breast at the 12:00 position 5 cm from the nipple demonstrates normal-appearing fatty tissue without evidence of fluid collection. Imaging is also performed at the 9:00 position 5 c m the nipple without evidence of mass. Imaging of the axilla demonstrates no evidence of adenopathy o r mass. CONCLUSION: 1. No evidence of abscess. No abnormal mass or adenopathy is seen. Electronically signed by: Estela Thompson MD 05/08/2018 5:36 PM EDT
[2018-05-08] MEDS: Vancomycin Inj 1,250 MG in Sodium Chlor 0.9% Inj 250 ML IV.SIG SCH (19:52)
--- NOTE | 2018-05-09 00:35 | ECG ---
Date Performed: 05/07/2018 Time Performed: 19:56:18 PTAGE: 88 years EKG: Sinus rhythm NORMAL ECG PREVIOUS TRACING : 07/03/2017 18.45 Since the previous tracing, no significant change noted DOCTOR: Pedro Pablo Moffett Interpretating Date/Time 05/09/2018 00:33:31
[2018-05-09] MEDS: Aztreonam Inj 2 GM in Sodium Chloride 0.9% Inj 100 ML IV.SIG SCH ×3 (04:06→20:29)
[2018-05-09 07:17] LABS: Baso % (Auto) 0.2 % (0.0-2.0); Eos % (Auto) 0.4 % (0.0-4.0); Hematocrit 36.4 % (35.0-46.0); Hemoglobin 12.5 gm/dL (11.6-15.3); Lymph # (Auto) 0.8 th/mm3 (1.0-4.8); Lymph % (Auto) 8.1 % (9.0-44.0); Mean Corpuscular HGB Conc 34.3 % (32.0-36.0); Mono # (Auto) 0.9 th/mm3 (0.0-0.9); Mono % (Auto) 8.9 % (0.0-8.0); Neut # (Auto) 8.4 th/mm3 (1.8-7.7); Neut % (Auto) 82.4 % (16.0-70.0); Platelet Count 210 th/mm3 (150-450); Red Blood Count 3.67 mil/mm3 (4.00-5.30); Red Cell Distribution Width 12.8 % (11.6-17.2); White Blood Count 10.2 th/mm3 (4.0-11.0)
[2018-05-09 07:57] LABS: Anion Gap 11 meq/L (5-15); Blood Urea Nitrogen 12 mg/dL (7-18); Calcium 7.7 mg/dL (8.5-10.1); Carbon Dioxide 24.2 meq/L (21.0-32.0); Chloride 106 meq/L (98-107); Glomerular Filtration Rate Greater Than 89 mL/min (>89); Glucose,Random 92 mg/dL (74-106); Magnesium 2.3 mg/dL (1.5-2.5); Potassium 3.3 meq/L (3.5-5.1); Sodium 141 meq/L (136-145)
[2018-05-09] MEDS ORDERED: Potassium Chloride 25 MEQ Effervescent Tablet PO ONE (09:00)
[2018-05-09] MEDS: Senna/Docusate Sodium 8.6/50 MG Tablet PO SCH ×2 (10:19→20:36)
[2018-05-09] MEDS: Heparin - SQ 10,000 UNITS/ML Vial SQ SCH ×2 (10:19→20:29)
[2018-05-09] MEDS: Sod Chloride 0.9% Inj 1,000 ML IV.CONT SCH ×2 (10:24→17:54)
--- NOTE | 2018-05-09 15:33 | P.PNIM ---
Subjective Interval history: Patient complains of swelling of the right breast. Physical Exam Vital signs: Vital Signs 05/08/18 15:33 05/08/18 20:00 05/09/18 00:00 Temperature 98.1 F 98.3 F 97.9 F Pulse Rate 82 80 80 Respiratory Rate 20 16 16 Blood Pressure 134/63 136/62 145/67 H Pulse Oximetry 99 95 91 L 05/09/18 03:32 05/09/18 04:00 05/09/18 08:00 Temperature 97.7 F 97.4 F L Pulse Rate 72 76 69 Respiratory Rate 16 14 Blood Pressure 123/59 L 127/62 Pulse Oximetry 96 97 05/09/18 12:00 Temperature 97.5 F L Pulse Rate 75 Respiratory Rate 16 Blood Pressure 145/64 H Pulse Oximetry 98 Intake & Output 05/08/18 05/09/18 05/09/18 18:59 06:59 18:59 Intake Total 1100 / 1100 462.5 / 462.5 1200 / 1200 Balance 1100 / 1100 462.5 / 462.5 1200 / 1200 Intake: IV 1100 / 1100 462.5 / 462.5 1200 / 1200 NS Inj 1,000 ML @ 70 mls/hr IV. 1000 / 1000 1000 / 1000 CONT .[id number] SOURAV Rx#:[id number] Azactam Inj 2 GM In NS Inj 100 100 / 100 100 / 100 ML @ 200 mls/hr IV.SIG Q8H SOURAV Rx#:[id number] Vancomycin Inj 1,250 MG In NS 262.5 / 262.5 Inj 250 ML @ 250 mls/hr IV.SIG Q24H SOURAV Rx#:[id number] Flagyl 500 MG Inj 100 ML @ 100 100 / 100 100 / 100 100 / 100 mls/hr IV.SIG Q8H SOURAV Rx#: [id number] Other: Date of Last Bowel Movement 05/07/18 05/07/18 Narrative: General patient in no acute distress HEENT extraocular movements are intact, clear oropharyngeal mucosa, no JVD Breast right lateral breast shows erythema, swelling. Cardiovascular S1-S2 audible Respiratory clear to auscultation bilaterally Abdomen soft, nontender, nondistended, normal bowel sounds Extremities no edema 2+ distal pulses in bilateral upper and lower extremities Results - Labs CBC & Chem 7: 05/09/18 06:20 05/09/18 06:20 Laboratory Results - last 24 hr 05/09/18 05/09/18 06:20 06:20 WBC 10.2 RBC 3.67 L Hgb 12.5 Hct 36.4 MCV 99.0 MCH 34.0 MCHC 34.3 RDW 12.8 Plt Count 210 MPV 7.0 Neut % (Auto) 82.4 H Lymph % (Auto) 8.1 L [place] % (Auto) 8.9 H Eos % (Auto) 0.4 Baso % (Auto) 0.2 Neut # (Auto) 8.4 H Lymph # (Auto) 0.8 L [place] # (Auto) 0.9 Eos # (Auto) 0.0 Baso # (Auto) 0.0 WBC Differential . Differential Comment Auto diff final Sodium 141 Potassium 3.3 L Chloride 106 Carbon Dioxide 24.2 Anion Gap 11 BUN 12 Creatinine 0.47 L Estimated GFR Greater than 89 Random Glucose 92 Calcium 7.7 L Magnesium 2.3 Microbiology 05/07/18 20:30 Blood - Peripheral Aerobic Blood Culture - Preliminary No growth in 2 days 05/07/18 20:30 Blood - Peripheral Anaerobic Blood Culture - Preliminary No growth in 2 days 05/07/18 20:20 Blood - Peripheral Aerobic Blood Culture - Preliminary No growth in 2 days 05/07/18 20:20 Blood - Peripheral Anaerobic Blood Culture - Preliminary No growth in 2 days - Imaging Impressions Breast Ultrasound 05/08/18 00:00 CONCLUSION: 1. No evidence of abscess. No abnormal mass or adenopathy is seen. Assessment and Plan - Plan This patient is an 88-year-old female with a past medical history of right- sided breast cancer who presented to our emergency department after having difficulty getting up at home from the toilet. She called for help and was brought into the emergency department for evaluation. On evaluation she was found to have redness erythema and swelling of the right lateral breast. 1. Severe sepsis likely secondary to right breast cellulitis with concern for abscess. The patient's WBC count has improved since admission and has now normalized. She is currently afebrile. Lactate has normalized. Flagyl will be discontinued. Ultrasound of the right breast did not show any findings consistent with her fluid collection. She currently does not have any complaints of pain of the right breast. Blood cultures are negative. We will continue IV antibiotics today. She will be reevaluated tomorrow and likely be discharged tomorrow.
[2018-05-09] MEDS: Vancomycin Inj 1,250 MG in Sodium Chlor 0.9% Inj 250 ML IV.SIG SCH (17:53)
[2018-05-10] MEDS: Aztreonam Inj 2 GM in Sodium Chloride 0.9% Inj 100 ML IV.SIG SCH ×3 (05:29→21:09)
[2018-05-10] MEDS: Sod Chloride 0.9% Inj 1,000 ML IV.SIG SCH ×2 (05:29→21:20)
[2018-05-10] MEDS: Sod Chloride 0.9% Inj 1,000 ML IV.CONT SCH ×2 (07:49→23:11)
[2018-05-10] MEDS: Heparin - SQ 10,000 UNITS/ML Vial SQ SCH ×2 (09:19→21:17)
[2018-05-10] MEDS: Senna/Docusate Sodium 8.6/50 MG Tablet PO SCH ×2 (09:19→21:19)
--- NOTE | 2018-05-10 09:39 | P.PNIM ---
Subjective Interval history: f/ul cellulitis right breast/ generalized weakness in no distress. no fever. denies pain. still with some erythema over the right breast. d/w the RN. Physical Exam Vital signs: Vital Signs 05/09/18 12:00 05/09/18 16:00 05/09/18 20:00 Temperature 97.5 F L 98.1 F 98.1 F Pulse Rate 75 76 77 Respiratory Rate 16 16 16 Blood Pressure 145/64 H 141/64 H 137/63 Pulse Oximetry 98 98 99 05/10/18 00:00 05/10/18 04:00 Temperature 98.5 F 98.2 F Pulse Rate 90 64 Respiratory Rate 18 18 Blood Pressure 146/66 H 117/70 Pulse Oximetry 97 98 Intake & Output 05/09/18 05/10/18 05/10/18 18:59 06:59 18:59 Intake Total 2780 / 2780 462.5 / 462.5 Balance 2780 / 2780 462.5 / 462.5 Weight 62.7 kg Intake: IV 2300 / 2300 462.5 / 462.5 NS Inj 1,000 ML @ 70 mls/hr IV. 1999 / 1999 CONT .[id number] [facility] Rx#:[id number] Azactam Inj 2 GM In NS Inj 100 100 / 100 200 / 200 ML @ 200 mls/hr IV.SIG Q8H [facility] Rx#:[id number] Vancomycin Inj 1,250 MG In NS 262.5 / 262.5 Inj 250 ML @ 250 mls/hr IV.SIG Q24H [facility] Rx#:[id number] Flagyl 500 MG Inj 100 ML @ 100 200 / 200 mls/hr IV.SIG Q8H [facility] Rx#: [id number] Oral 480 / 480 Other: # Voids 1 Date of Last Bowel Movement 05/09/18 05/09/18 - Constitutional no acute distress - Detailed Breast Exam right Inspection: Present: erythema (but with no tenderness.) - Routine Respiratory Exam Present: CTA bilaterally - Routine Cardiovascular Exam Present: RRR - Routine Abdominal Exam Present: soft Results - Labs CBC & Chem 7: 05/09/18 06:20 05/09/18 06:20 Laboratory Results - last 24 hr 05/09/18 05/09/18 15:46 21:44 POC Glucose 101 Magnesium 2.0 Microbiology 05/07/18 20:30 Blood - Peripheral Aerobic Blood Culture - Preliminary No growth in 2 days 05/07/18 20:30 Blood - Peripheral Anaerobic Blood Culture - Preliminary No growth in 2 days 05/07/18 20:20 Blood - Peripheral Aerobic Blood Culture - Preliminary No growth in 2 days 05/07/18 20:20 Blood - Peripheral Anaerobic Blood Culture - Preliminary No growth in 2 days Assessment and Plan - Plan Severe sepsis likely secondary to right breast cellulitis with concern for abscess. sonogram with no abscess. continue with IV antibiotics and will add topical antifungal. blood cultures negative. generalized weakness- consult PT. Discharge Planning: dc home tomorrow- pending PT evaluation.
[2018-05-10] MEDS: Clotrimazole 1% Cream 15 GM Tube TOPICAL SCH ×2 (11:33→21:17)
--- NOTE | 2018-05-10 14:28 | P.DCO ---
- Physical Therapy Order: Evaluate and treat - Home Health Nursing Order: Medical education, Signs/symptoms of disease process, Medication education-adverse effect - Certification I have seen patient Trudi Yeung on 05/10/18. My clinical findings support the need for the requested home health care services because: Limited mobility due to disease progression I certify that my clinical findings support that this patient is homebound because: Unsteady gait/balance
[2018-05-10] MEDS ORDERED: Pharmacy Ordered Lab Info OTHER ONE (17:45)
[2018-05-10 19:05] LABS: Anion Gap 10 meq/L (5-15); Blood Urea Nitrogen 13 mg/dL (7-18); Carbon Dioxide 21.4 meq/L (21.0-32.0); Chloride 108 meq/L (98-107); Glomerular Filtration Rate Greater Than 89 mL/min (>89); Glucose,Random 128 mg/dL (74-106); Potassium 3.9 meq/L (3.5-5.1); Sodium 139 meq/L (136-145)
[2018-05-10 19:07] LABS: Vancomycin,Trough 6.2 mcg/mL (5.0-10.0)
[2018-05-10] MEDS: Vancomycin Inj 1,250 MG in Sodium Chlor 0.9% Inj 250 ML IV.SIG SCH (21:09)
[2018-05-11] MEDS: Aztreonam Inj 2 GM in Sodium Chloride 0.9% Inj 100 ML IV.SIG SCH (04:00)
--- NOTE | 2018-05-11 09:39 | P.PNIM ---
Subjective Interval history: in no acute distress. afebrile. no new complaints. Physical Exam Vital signs: Vital Signs 05/10/18 12:00 05/10/18 16:00 05/10/18 20:00 Temperature 97.3 F L 98.4 F Pulse Rate 71 82 88 Respiratory Rate 18 18 Blood Pressure 119/61 168/85 H Pulse Oximetry 100 97 05/10/18 22:50 05/11/18 00:00 05/11/18 03:10 Temperature 98 F 98 F 97.3 F L Pulse Rate 74 108 H 75 Respiratory Rate 18 18 20 Blood Pressure 130/68 123/63 128/68 Pulse Oximetry 96 97 96 05/11/18 08:00 Temperature 97.9 F Pulse Rate 78 Respiratory Rate 16 Blood Pressure 127/70 Pulse Oximetry 97 Intake & Output 05/10/18 05/11/18 05/11/18 18:59 06:59 18:59 Intake Total 940 / 940 2207.5 / 2207.5 Output Total 800 / 800 Balance 940 / 940 1407.5 / 1407.5 Weight 62.5 kg Intake: IV 100 / 100 1462.5 / 1462.5 Azactam Inj 2 GM In NS Inj 100 100 / 100 200 / 200 ML @ 200 mls/hr IV.SIG Q8H [facility] Rx#:[id number] NS Inj 1,000 ML @ Wide Open IV. 1000 / 1000 SIG .Q0M [facility] Rx#:[id number] Vancomycin Inj 1,250 MG In NS 262.5 / 262.5 Inj 250 ML @ 250 mls/hr IV.SIG Q24H [facility] Rx#:[id number] Oral 840 / 840 745 / 745 Output: Urine 800 / 800 Other: # Voids 4 2 Date of Last Bowel Movement 05/09/18 # Bowel Movements 0 0 # Incontinent Bowel Movements 1 - Constitutional no acute distress - Routine Chest/Breast/Axilla Exam Breast: Present: erythema (right breast erythema has improved.) - Routine Respiratory Exam Present: CTA bilaterally - Routine Cardiovascular Exam Present: RRR - Routine Abdominal Exam Present: soft - Routine Extremities Exam Comments: no pedal edema. - Routine Neurological Exam Present: alert, oriented X3 Results - Labs CBC & Chem 7: 05/09/18 06:20 05/10/18 17:50 Laboratory Results - last 24 hr 05/10/18 17:50 Sodium 139 Potassium 3.9 Chloride 108 H Carbon Dioxide 21.4 Anion Gap 10 BUN 13 Creatinine 0.45 L Estimated GFR Greater than 89 Random Glucose 128 H Calcium 8.0 L Vancomycin Trough 6.2 Microbiology 05/07/18 20:30 Blood - Peripheral Aerobic Blood Culture - Preliminary No growth in 3 days 05/07/18 20:30 Blood - Peripheral Anaerobic Blood Culture - Preliminary No growth in 3 days 05/07/18 20:20 Blood - Peripheral Aerobic Blood Culture - Preliminary No growth in 3 days 05/07/18 20:20 Blood - Peripheral Anaerobic Blood Culture - Preliminary No growth in 3 days Assessment and Plan - Plan Severe sepsis likely secondary to right breast cellulitis - now improving. sonogram with no abscess. switch to oral antibiotic with topical antifungal. blood cultures negative. generalized weakness- consulted PT. Discharge Planning: dc home today. see med list. f/u; pcp. d/w the patient.
--- NOTE | 2018-05-11 09:45 | P.DS ---
Date of admission: 05/07/18 21:40 Primary care physician: UNKNOWN Brief History from admission: 88-year-old female with a past medical history significant for remote history of breast cancer presents to the emergency department for evaluation of dizziness and fatigue. The patient reports she went to the restroom today after feeling lightheaded and well she was sitting on the toilet was then unable to get up secondary to weakness. She denies any fever/chills. No loss of consciousness. No chest pain or shortness of breath. No abdominal pain. No nausea/vomiting/diarrhea. No lateralizing signs/symptoms. DS: Medications - Discharge Medications Prescriptions: clindamycin HCl [Cleocin HCl] 300 mg PO QID 7 Days #112 cap clotrimazole 1 applicatio TOPICAL BID #1 g DS: Summary Hospital Course: patient was admitted with cellulitis of the right breast. she was started on broad spectrum IV antibiotics and topical antifungal. her cellulitis improved. blood cultures negative and sonogram of the right breast didn't reveal any abscess. she will be discharged home with oral antibiotics and f/u with pcp. - Time Spent with Patient Total time spent providing and/or coordinating discharge services: Less than 30 minutes - Quality: VTE Deep Vein Thrombosis/Pulmonary Embolism Present on Admission: No Exam Vital signs: Vital Signs 05/10/18 12:00 05/10/18 16:00 05/10/18 20:00 Temperature 97.3 F L 98.4 F Pulse Rate 71 82 88 Respiratory Rate 18 18 Blood Pressure 119/61 168/85 H Pulse Oximetry 100 97 05/10/18 22:50 05/11/18 00:00 05/11/18 03:10 Temperature 98 F 98 F 97.3 F L Pulse Rate 74 108 H 75 Respiratory Rate 18 18 20 Blood Pressure 130/68 123/63 128/68 Pulse Oximetry 96 97 96 05/11/18 08:00 Temperature 97.9 F Pulse Rate 78 Respiratory Rate 16 Blood Pressure 127/70 Pulse Oximetry 97 Intake & Output 05/10/18 05/11/18 05/11/18 18:59 06:59 18:59 Intake Total 940 / 940 2207.5 / 2207.5 Output Total 800 / 800 Balance 940 / 940 1407.5 / 1407.5 Weight 62.5 kg Intake: IV 100 / 100 1462.5 / 1462.5 Azactam Inj 2 GM In NS Inj 100 100 / 100 200 / 200 ML @ 200 mls/hr IV.SIG Q8H [facility] Rx#:[id number] NS Inj 1,000 ML @ Wide Open IV. 1000 / 1000 SIG .Q0M [facility] Rx#:[id number] Vancomycin Inj 1,250 MG In NS 262.5 / 262.5 Inj 250 ML @ 250 mls/hr IV.SIG Q24H [facility] Rx#:[id number] Oral 840 / 840 745 / 745 Output: Urine 800 / 800 Other: # Voids 4 2 Date of Last Bowel Movement 05/09/18 # Bowel Movements 0 0 # Incontinent Bowel Movements 1 Results Procedures completed during hospitalization: none. Labs on day of discharge: Labs from last 24 hours 05/10/18 17:50 Sodium 139 Potassium 3.9 Chloride 108 H Carbon Dioxide 21.4 Anion Gap 10 BUN 13 Creatinine 0.45 L Estimated GFR Greater than 89 Random Glucose 128 H Calcium 8.0 L Vancomycin Trough 6.2 Preliminary micro results at discharge 05/07/18 20:30 Aerobic Blood Culture - Preliminary Blood - Peripheral No growth in 3 days Anaerobic Blood Culture - Preliminary No growth in 3 days 05/07/18 20:20 Aerobic Blood Culture - Preliminary Blood - Peripheral No growth in 3 days Anaerobic Blood Culture - Preliminary No growth in 3 days - Impressions ITS Impressions Chest X-Ray 05/07/18 20:01 CONCLUSION: 1. No acute cardiopulmonary disease. 2. Degenerative changes and scoliosis of the thoracolumbar spine. 3. 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 Breast Ultrasound 05/08/18 00:00 CONCLUSION: 1. No evidence of abscess. No abnormal mass or adenopathy is seen. Discharge Plan - Discharge Disposition Patient Disposition: Discharge Home - Discharge Condition Condition: Good - Physicians Team Primary Care Provider: UNKNOWN, Attending Provider: Gary Huang
[2018-05-11] MEDS ORDERED: Vancomycin Inj 1,000 MG in Sodium Chlor 0.9% Inj 250 ML IV.SIG SCH (10:00)
[2018-05-11] MEDS: Senna/Docusate Sodium 8.6/50 MG Tablet PO SCH (10:27)
[2018-05-11] MEDS: Heparin - SQ 10,000 UNITS/ML Vial SQ SCH (10:27)
[2018-05-11] MEDS: Clotrimazole 1% Cream 15 GM Tube TOPICAL SCH (10:28)
[2018-05-11] MEDS ORDERED: Vancomycin Inj 1,250 MG in Sodium Chlor 0.9% Inj 250 ML IV.SIG SCH (15:00)
[2018-05-12] MEDS ORDERED: Pharmacy Ordered Lab Info OTHER ONE ×2 (08:45→21:45)
== END 2018-05-11 14:11 | disposition home or self-care (01) ==
LOC: NEPC 19:44 → NEDA 21:40 → NEPGCP 23:56 → N05 05-09 14:50
PROVIDERS: ADMIT Internal Medicine; ATTEND Internal Medicine